=== PATIENT | female | born 1995 | race Caucasian/White ===

== ENCOUNTER 2019-02-09 23:00 | Inpatient (IN) | payer MEDICAID, SELFPAY | END 2019-02-11 12:50 | disposition home or self-care (01) | DRG 786 | PROVIDERS: Admitting Provider Family Medicine; Family Provider Family Medicine; Visit Provider Family Medicine | DX: O71.03 Rupture of uterus before onset of labor, third trimester (principal); O45.93 Premature separation of placenta, unspecified, third trimester; Z3A.34 34 weeks gestation of pregnancy; Z37.0 Single live birth; O34.211 Maternal care for low transverse scar from previous cesarean delivery; N85.8 Other specified noninflammatory disorders of uterus; O76 Abnormality in fetal heart rate and rhythm complicating labor and delivery; O99.02 Anemia complicating childbirth; D64.9 Anemia, unspecified; Z28.21 Immunization not carried out because of patient refusal ==

== ENCOUNTER 2019-06-20 07:48 | Outpatient (CLI) | payer MEDICAID, SELFPAY ==
--- NOTE | 2019-06-20 08:00 | US_ITS ---
WS: [id number] ABDOMINAL ULTRASOUND LIMITED REASON FOR VISIT: abdominal pain TECHNIQUE: Grayscale and Doppler ultrasound examination of the abdomen. FINDINGS: Pancreas: Within normal limits Abdominal aorta and IVC: Within normal limits Liver: Liver measures 15.2 cm in length. Normal hepatopedal circulation. Gallbladder: Gallbladder wall thickness measures 0.2 mm. No stones identified. Right kidney: Right kidney measures 10.9 cm x 6.7 cm x 4.9 cm. No hydronephrosis no stones. US/US gall bladder [id number] IMPRESSION: Normal abdominal survey by ultrasound.
== END 2019-06-20 07:49 | disposition home or self-care (01) ==
LOC: RAD 07:48
PROVIDERS: Family Provider Family Medicine; PCP Family Medicine; Visit Provider Surgery
DX: R10.9 Unspecified abdominal pain (principal)
CPT/HCPCS: 76705

== ENCOUNTER 2019-07-04 07:27 | Outpatient (CLI) | payer MEDICAID, SELFPAY ==
--- NOTE | 2019-07-04 07:37 | NM_ITS ---
WS: [id number] NUCLEAR MEDICINE HIDA SCAN CLINICAL INFORMATION: RUQ PAIN TECHNIQUE: Following intravenous administration of 7.1 mCi of technetium 99m mebrofenin, images of th e abdomen were obtained over the course of 60 minutes. Next, gallbladder ejection fraction was determ ined by obtaining preprandial and one-hour postprandial images of the gallbladder following oral eliseo stion of Ensure. COMPARISON: Ultrasound June 20, 2019 FINDINGS: Normal hepatic uptake at 5 minutes. Gallbladder is visualized by 10 minutes. Normal common bile duct is visualized. Normal small bowel activity. No evidence of acute cholecystitis. Gallbladder ejection fraction 93% within normal limits. No evidence of chronic cholecystitis. NM/NM hepatobiliary w phar* [id number] IMPRESSION: 1. No evidence of acute or chronic cholecystitis. 2. Gallbladder ejection fraction 93% within normal limits.
== END 2019-07-04 07:28 | disposition home or self-care (01) ==
PROVIDERS: PCP Family Medicine; Visit Provider Surgery
DX: R10.11 Right upper quadrant pain (principal)
CPT/HCPCS: 78227; A9537

== ENCOUNTER 2019-07-12 14:41 | Outpatient (CLI) | payer MEDICAID, SELFPAY | END 2019-07-12 14:42 | disposition home or self-care (01) | LOC: LAB 14:43 | PROVIDERS: PCP Family Medicine; Visit Provider Surgery | DX: R19.7 Diarrhea, unspecified (principal) | CPT/HCPCS: 83630; 87177; 87209; 87493; 87506 ==

== ENCOUNTER 2019-08-06 10:56 | Emergency (ER) | payer MEDICAID, SELFPAY ==
[2019-08-06 11:00] VITALS: BP 102/57; PULSE 118; RESP 18; TEMP 38.3; O2SAT 97; BMI 32.6
--- NOTE | 2019-08-06 11:47 | XR_ITS ---
WS: [id number] PORTABLE CHEST HISTORY: Fever COMPARISON: 02/10/2019 Lungs are clear and well expanded. No pleural effusion or pneumothorax. Cardiac size: Normal. Mediastinum/Aorta: Normal mediastinum. No osseous abnormality seen. XR/XR chest 1V portable [id number] IMPRESSION: Unremarkable portable chest.
--- NOTE | 2019-08-06 12:00 | ED_ITS ---
HPI - Fever General: Chief Complaint: Fever Stated Complaint: fever/ body aches Time Seen by Provider: 08/06/19 11:59 Source: patient Mode of arrival: ambulatory Limitations: no limitations History of Present Illness: HPI Narrative: Patient comes in for fever and malaise since Tuesday. Patient symptoms are generalized with some nausea and vomiting. Patient does have a history of gallstones. Patient's appendix has been removed. Patient appears mildly unwell. Patient appears in no pain. Patient does report some suprapubic and low back pain. MD elicited complaint: fever and malaise Associated symptoms: Reports diarrhea and nausea Review of Systems General: Reports: 10 or more systems reviewed and unremarkable except in HPI and below Const: Reports: fever(s) GI: Reports: nausea and diarrhea PFSH ED PFSH: Surgical History History of 2 sections History of appendectomy (~2015) History of tubal ligation (~2019) Family History Denies family history of Anesthesia complication Bleeding disorder Social History Smoking and tobacco status: never smoked Second hand smoke exposure: No Alcohol intake: current Alcohol intake frequency: holidays/special occasions only Desire information about alcohol rehabilitation?: No Adopted: No Caregiver/support person: Yes Lives independently: Yes Household members: significant other Housing: House Marital status: Single service: No Current occupational status: unemployed 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 Current occupational exposures/hazards: No Pets and animals: No History of recent travel: No Sexually active: No Current gender identity: Female Rocío/Episcopal: Taoism Special rocío needs: No Agree to transfusion: No Financial difficulty paying for basics: Decline to Answer Physical Exam Const: COMMON NORMALS: no acute distress and patient oriented x3 GENERAL APPEARANCE: cooperative HENMT: COMMON NORMALS: normocephalic and Normal external nose present HEAD & SCALP: normal to inspection and normocephalic NOSE: Normal external nose present MOUTH: Normal oral and palatal mucosa present THROAT: posterior oropharynx normal Eye: GENERAL EYE: appearance normal, both eyes and all related structures Neck/C-Spine: COMMON NORMALS: full ROM Lymph: LYMPHATIC: no lymphadenopathy noted Chest: COMMONS NORMALS: normal inspection of the chest Resp: COMMON NORMALS: normal respiratory effort EFFORT & INSPECTION: Yes able to speak in complete sentences Cardio: COMMON NORMALS: regular rate and regular rhythm RATE: regular rate RHYTHM: regular rhythm GI: COMMON NORMALS: non-tender : COMMON NORMALS: Yes no CVA tenderness BLADDER/KIDNEY EXAM: Yes no CVA tenderness Back/Pelvis: COMMON NORMALS: no CVA tenderness and thoracic and lumbar spine normal to inspection Extremity: COMMON NORMALS: normal to inspection Neuro: COMMON NORMALS: patient oriented x3 and moves all extremities Psych: COMMON NORMALS: mental status grossly normal and cooperative Skin: COMMON NORMALS: no rashes or lesions noted GENERAL SKIN EXAM: no rashes or lesions noted Course Vital Signs: Vital signs: Vital Signs Temperature 100.9 F H 08/06/19 11:00 Pulse Rate 109 H 08/06/19 13:14 Respiratory Rate 15 08/06/19 13:14 Blood Pressure 128/88 08/06/19 13:14 Pulse Oximetry 99 08/06/19 13:14 MDM - Fever MDM Narrative: Medical decision making narrative: Patient came in today for complaints of febrile illness since last Tuesday. On exam abdomen soft nontender. Bowel sounds are present. No CVA tenderness is noted. Respirations are even lungs are clear to auscultation. Vital signs are normal except for elevation in temperature. Differential diagnosis includes but not limited to pneumonia, urinary tract infection, gastroenteritis, cholecystitis, pyelonephritis. Chest x-ray was normal. Laboratory values noted a slight elevation in white blood cell count. Urinalysis showed leukocyte esterase. Remainder the exam was normal. Suspect urinary tract infection. Will treat with Rocephin 1 g IV piggyback x1 and then continue with cephalexin twice daily for 7 days. Patient will monitor for worsening symptoms and return if needed. Recommend follow-up with primary care in 1 week for recheck. Lab Data: Labs: Lab Results 08/06/19 08/06/19 08/06/19 Range/Units 12:56 12:56 12:56 WBC 13.9 H (4.0-10.0) 10^3/ uL RBC 4.51 (4.1-5.3) 10^6/u L Hgb 12.0 (11.5-15.3) g/dL Hct 38.4 (37.0-47.0) % MCV 85.1 (81-99) fL MCH 26.6 L (28.0-34.0) pg MCHC 31.3 (30.0-36.0) g/dL RDW 13.1 (12.1-15.1) % Plt Count 229 (130-400) 10^3/c mm MPV 8.7 (7.4-10.4) fL Neut % (Auto) 87.2 % Lymph % (Auto) 8.4 % Maury % (Auto) 3.9 % Eos % (Auto) 0.1 % Baso % (Auto) 0.1 % Neut # (Auto) 12.1 H (1.8-7.7) 10^3/u L Lymph # (Auto) 1.2 (0.8-4.8) 10^3/u L Maury # (Auto) 0.5 (0.2-0.9) 10^3/u L Eos # (Auto) 0.0 (0.0-0.8) 10^3/u L Baso # (Auto) 0.0 (0.0-0.1) 10^3/u L Nucleated RBC % (a uto) 0 % Nucleated RBCs # 0.0 /100WBC Sodium 137 (136-145) mmol/L Potassium 3.7 (3.5-5.1) mmol/L Chloride 100 (98-107) mmol/L Carbon Dioxide 22 (22-29) mmol/L Anion Gap 18.7 (5-19) BUN 8 (6-20) mg/dL Creatinine 0.6 (0.5-0.9) mg/dL GFR Calculation 125.0 (90-130) mL/min Glucose 95 (65-115) mg/dL Calculated Osmolal ity 280 L (285-295) mOsm/k g Lactic Acid (0.5-2.2) mmol/L Calcium 9.0 (8.5-10.5) mg/dL Magnesium 1.7 (1.7-2.3) mg/dL Total Bilirubin 0.5 (0.15-1.2) mg/dL AST 14 (0-32) U/L ALT 15 (0-33) U/L Alkaline Phosphata se 66 (35-105) IU/L Total Protein 7.4 (6.6-8.7) g/dL Albumin 4.2 (3.5-5.2) g/dL Globulin 3.2 (1.3-4.6) g/dL Lipase 17 (13-60) U/L HCG, Qual Negative (Negative) Urine Color (Yellow) Urine Appearance (CLEAR) Urine pH (5-7) Ur Specific Gravit y (1.005-1.030) Urine Protein (Negative) Urine Glucose (UA) (Normal) Urine Ketones (Negative) Urine Blood (Negative) Urine Nitrate (Negative) Urine Bilirubin (NEGATIVE) Urine Urobilinogen (Negative) mg/dL Ur Leukocyte Mariana ase (Negative) Urine RBC (0-2) /hpf Urine WBC (0-5) /hpf Ur Squamous Epith Cells (0-5) Urine Bacteria (NONE) Urine Mucus 08/06/19 08/06/19 Range/Units 12:56 13:09 WBC (4.0-10.0) 10^3/ uL RBC (4.1-5.3) 10^6/u L Hgb (11.5-15.3) g/dL Hct (37.0-47.0) % MCV (81-99) fL MCH (28.0-34.0) pg MCHC (30.0-36.0) g/dL RDW (12.1-15.1) % Plt Count (130-400) 10^3/c mm MPV (7.4-10.4) fL Neut % (Auto) % Lymph % (Auto) % Maury % (Auto) % Eos % (Auto) % Baso % (Auto) % Neut # (Auto) (1.8-7.7) 10^3/u L Lymph # (Auto) (0.8-4.8) 10^3/u L Maury # (Auto) (0.2-0.9) 10^3/u L Eos # (Auto) (0.0-0.8) 10^3/u L Baso # (Auto) (0.0-0.1) 10^3/u L Nucleated RBC % (a uto) % Nucleated RBCs # /100WBC Sodium (136-145) mmol/L Potassium (3.5-5.1) mmol/L Chloride (98-107) mmol/L Carbon Dioxide (22-29) mmol/L Anion Gap (5-19) BUN (6-20) mg/dL Creatinine (0.5-0.9) mg/dL GFR Calculation (90-130) mL/min Glucose (65-115) mg/dL Calculated Osmolal ity (285-295) mOsm/k g Lactic Acid 0.9 (0.5-2.2) mmol/L Calcium (8.5-10.5) mg/dL Magnesium (1.7-2.3) mg/dL Total Bilirubin (0.15-1.2) mg/dL AST (0-32) U/L ALT (0-33) U/L Alkaline Phosphata se (35-105) IU/L Total Protein (6.6-8.7) g/dL Albumin (3.5-5.2) g/dL Globulin (1.3-4.6) g/dL Lipase (13-60) U/L HCG, Qual (Negative) Urine Color Yellow (Yellow) Urine Appearance Clear (CLEAR) Urine pH 5 (5-7) Ur Specific Gravit y 1.015 (1.005-1.030) Urine Protein Neg (Negative) Urine Glucose (UA) Norm (Normal) Urine Ketones Negative (Negative) Urine Blood Neg (Negative) Urine Nitrate Negative (Negative) Urine Bilirubin Neg (NEGATIVE) Urine Urobilinogen Neg (Negative) mg/dL Ur Leukocyte Mariana ase Trace H (Negative) Urine RBC None (0-2) /hpf Urine WBC 0-4 H (0-5) /hpf Ur Squamous Epith Cells 10-15 H (0-5) Urine Bacteria Trace (NONE) Urine Mucus 3+ Discharge Plan Discharge Patient Disposition: Home, Self-Care Clinical Impression: UTI (urinary tract infection) Qualifiers: Urinary tract infection type: site unspecified Hematuria presence: without hematuria Qualified Code(s): N39.0 - Urinary tract infection, site not specified Condition: Stable Prescriptions: New cephalexin 500 mg capsule 500 mg PO BID 7 Days Qty: 14 RF: 0 Discontinued ciprofloxacin HCl [Cipro] 500 mg tablet 500 mg PO BID 7 Days Qty: 14 RF: 0 metronidazole [Flagyl] 500 mg tablet 500 mg PO TID 7 Days Qty: 21 RF: 0 No Action clindamycin phosphate 1 % gel 1 applic TOPICAL DAILY Qty: 30 RF: 0 Discharge Orders: Discharge Order (Routine); Ordered 08/06/19 Ordered By: Timothy Pritchett Referrals: Malcom Smith MD [Primary Care Provider] - Discharge Diet: Usual diet Discharge Activity: Increase activity as tolerated Activity Restrictions/Additional Instructions: Home and rest. Drink plenty of fluids. Take antibiotics as directed. Follow- up with primary care in 1 week. Return to the emergency department for worsening symptoms or new concerns. 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
[2019-08-06 12:12] VITALS: BP 127/73; PULSE 112; RESP 16; O2SAT 99
[2019-08-06 13:04] LABS: Basophils % 0.1 %; Eosinophils % 0.1 %; Hematocrit 38.4 % (37.0-47.0); Lymphocytes # 1.2 10^3/uL (0.8-4.8); Lymphocytes % 8.4 %; Mean Corpuscular HGB Conc 31.3 g/dL (30.0-36.0); Mean Corpuscular Hemoglobin 26.6 pg (28.0-34.0); Mean Corpuscular Volume 85.1 fL (81-99); Mean Platelet Volume 8.7 fL (7.4-10.4); Monocytes # 0.5 10^3/uL (0.2-0.9); Monocytes % 3.9 %; Neutrophils # 12.1 10^3/uL (1.8-7.7); Neutrophils % 87.2 %; Nucleated Red Blood Cells % 0 %; Platelet Count 229 10^3/cmm (130-400); Red Blood Count 4.51 10^6/uL (4.1-5.3); Red Cell Distribution Width 13.1 % (12.1-15.1); White Blood Count 13.9 10^3/uL (4.0-10.0)
[2019-08-06] MEDS: lactated ringers 1,000 ML 999 ML IV (13:09)
[2019-08-06 13:14] VITALS: BP 128/88; PULSE 109; RESP 15; O2SAT 99
[2019-08-06 13:19] LABS: HCG, Serum Qual Negative (Negative)
[2019-08-06 13:28] LABS: Lactic Sepsis W/Reflex 0.9 mmol/L (0.5-2.2)
[2019-08-06 13:29] LABS: Alanine Aminotransferase 15 U/L (0-33); Albumin Level 4.2 g/dL (3.5-5.2); Alkaline Phosphatase 66 IU/L (35-105); Anion Gap 18.7 (5-19); Aspartate Amino Transferase 14 U/L (0-32); Blood Urea Nitrogen 8 mg/dL (6-20); Carbon Dioxide 22 mmol/L (22-29); Chloride 100 mmol/L (98-107); Globulin 3.2 g/dL (1.3-4.6); Glucose 95 mg/dL (65-115); Lipase 17 U/L (13-60); Magnesium 1.7 mg/dL (1.7-2.3); Osmolality Calculated 280 mOsm/kg (285-295); Potassium 3.7 mmol/L (3.5-5.1); Sodium 137 mmol/L (136-145); Total Bilirubin 0.5 mg/dL (0.15-1.2); Total Protein 7.4 g/dL (6.6-8.7)
[2019-08-06 13:39] LABS: Bacteria Urine TRACE; Bilirubin Urine Neg (NEGATIVE); Blood Urine Neg (Negative); Glucose Urine UA Norm (Normal); Ketones Urine Negative (Negative); Leukocyte Esterase Urine Trace (Negative); Mucus Urine 3+; Nitrate Urine Negative (Negative); Protein Urine Neg (Negative); Specific Gravity, Urine 1.015 (1.005-1.030); Urine Appearance Clear (CLEAR); Urine Color Yellow (Yellow); Urobilinogen Urine Neg (Negative); WBC Urine 0-4 /hpf (0-5); pH Urine 5 (5-7)
[2019-08-06 13:40] LABS: Add Urine Culture? No
[2019-08-06] MEDS: cefTRIAXone 1,000 MG in sodium chloride 0.9% (plus) 50 ML 100 MG IV (14:03)
[2019-08-06 14:58] VITALS: BP 122/97; PULSE 111; RESP 16; O2SAT 95
== END 2019-08-06 14:58 | disposition home or self-care (01) ==
PROVIDERS: Emergency Medicine; Emergency Provider Nurse Practitioner Family; PCP Family Medicine
DX: N39.0 Urinary tract infection, site not specified (principal)
CPT/HCPCS: 12345; 36415; 71045; 80053; 81001; 83605; 83690; 83735; 84703; 85025; 96365; 96367; 99283; J0696

== ENCOUNTER → 2019-11-13 10:59 | Outpatient (BNVA) | payer MEDICAID, SELFPAY | PROVIDERS: PCP Family Medicine; Referring Provider Dermatology; Visit Provider Dermatology | DX: L40.8 Other psoriasis (principal); L73.2 Hidradenitis suppurativa; B07.0 Plantar wart; L85.9 Epidermal thickening, unspecified; D22.9 Melanocytic nevi, unspecified; L70.0 Acne vulgaris | CPT/HCPCS: 99203; 99204 ==

== ENCOUNTER → 2020-05-23 10:15 | Outpatient (BNVA) | payer BC, MEDICAID, SELFPAY | PROVIDERS: PCP Family Medicine; Visit Provider Dermatology | DX: L70.0 Acne vulgaris (principal); Z11.52 Encounter for screening for COVID-19 | CPT/HCPCS: 80048; 87635 ==

== ENCOUNTER 2020-05-29 09:29 | Day surgery (SDC) | payer BC, MEDICAID, SELFPAY ==
[2020-05-28 14:26] VITALS: BMI 34.9
[2020-05-29] VITALS (7 sets, daily range): BP systolic 104–151; BP diastolic 68–83; PULSE 65–90; RESP 16–20; TEMP 36.3–36.6; O2SAT 97–100
--- NOTE | 2020-05-29 09:52 | P.ANESASSM_ITS ---
Pre-Anesthetic Assessment Pre-Anesthetic Assessment: Height/Weight: Height 1.73 m Weight 104.326 kg Temp Pulse Resp BP Pulse Ox 97.8 F 90 18 130/68 97 05/29/20 09:49 05/29/20 09:49 05/29/20 09:49 05/29/20 09:49 05/29/20 09:49 Proposed Procedure: Operation Date: 05/29/20 10:55 Proposed Procedures p abdominal wound exploration(Not Applicable) - Marcel Govea MD Was Beta Franki taken within 24 hours: N/A Was Clonidine taken within 24 hours: N/A Social: Social History: No alcohol and No tobacco Exam: Pre-Anes Outpt Exam: alert, oriented x 3, clear to auscultation bilaterally and regular rate & rhythm Airway: Submandibular: WNL Cervical ROM: WNL MP: 2 Dentition: Full Metabolic: Metabolic: Morbid obesity Neuropsych: Neuropsych: Anxiety and Depression Anesthetic Plan: ASA status: 3 Anesthesia: General Risk of > 500 ml blood loss (7ml/kg in children): No PFSH Anesthesia PFSH: Medical History (Updated 05/05/20 @ 11:32 by Marcel Govea MD) RUPA (generalized anxiety disorder) Major depressive disorder Surgical History History of 2 sections History of appendectomy (~2015) History of tubal ligation (~2019) Family History Denies family history of Anesthesia complication Bleeding disorder Social History Smoking and tobacco status: never smoked Second hand smoke exposure: No Alcohol intake: current Alcohol intake frequency: holidays/special occasions only Desire information about alcohol rehabilitation?: No Adopted: No Caregiver/support person: Yes Lives independently: Yes Household members: significant other Housing: House Marital status: Single service: No Current occupational status: unemployed 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
--- NOTE | 2020-05-29 10:07 | W.PM.OPSUD ---
Surgery/Procedure H&P Update DATE OF PROCEDURE: May 29, 2020 DATE H&P PERFORMED: 05/05/20 H&P UPDATE INFORMATION: I have reviewed H&P completed within last 30 days, I have examined patient prior to procedure and No changes to prior documentation PREOP DIAGNOSIS: chronic draining sinus abdominal wall PLANNED PROCEDURE: Operation Date: 05/29/20 10:55 Proposed Procedures p abdominal wound exploration(Not Applicable) - Marcel Govea MD
[2020-05-29 10:19] LABS: OR HCG Qualitative Urine Negative (Negative)
[2020-05-29] MEDS: sodium chloride 0.9% 1,000 ML 30 ML IV (10:25)
--- NOTE | 2020-05-29 12:34 | PM.OP ---
Operative Report Date of procedure: May 29, 2020 Pre-op Diagnosis: chronic draining sinus abdominal wall Post-op Diagnosis: Chronic draining sinus with abscess on the abdominal wall Procedure Done: Excision of abdominal wall abscess/sinus Pathology: Abdominal wall tissue Surgeon: Marcel Govea Anesthesia: General Condition: stable Disposition: PACU Procedure: The patient was taken to the operating room and placed under MAC and the abdomen was prepped and draped in sterile manner after IV antibiotic had been administered. 1% lidocaine with 0.5% Marcaine was infiltrated around the surgical site. Using 15 blade an elliptical 4 x 2 cm incision was made, subcutaneous tissue was divided using electrocautery and dissection was carried down to the muscular fascia. The specimen was sent to pathology, wound irrigated with saline, hemostasis ensured and subcutaneous tissues were approximated using interrupted 3-0 Vicryl suture and skin was closed using vertical mattress 3-0 Prolene suture. Antibiotic cream and sterile dressings were used to cover the incision. The patient was transferred recovery room in stable condition.
--- NOTE | 2020-05-29 13:39 | ANE.PACU2 ---
Inpatient post-anesthesia follow up: Airway intact: Yes Vital signs: Temperature 98 F Pulse Rate 76 Respiratory Rate 18 Blood Pressure 104/80 Pulse Oximetry 97 Oxygen Delivery Me thod Room Air Oxygen Flow Rate Fraction of Inspir ed Oxygen Hydration adequate: Yes Nausea and vomiting: No Pain level: 2 Mental status: Baseline
== END 2020-05-29 12:43 | disposition home or self-care (01) ==
PROVIDERS: Anesthesiology; PCP Family Medicine; Visit Provider Surgery
PROC: (CPT 11404; principal; 2020-05-29 10:45)
DX: L02.211 Cutaneous abscess of abdominal wall (principal); E66.01 Morbid (severe) obesity due to excess calories; Z68.35 Body mass index [BMI] 35.0-35.9, adult
CPT/HCPCS: 11404; 12032; 81025; 84703; 88307; 96365; J0690; J2704; J3010; J7030

== ENCOUNTER → 2020-10-20 12:08 | Outpatient (BNVA) | payer BC, MEDICAID, SELFPAY | PROVIDERS: PCP Family Medicine; Visit Provider Registered Nurse Neonatal Intensive Care | DX: J02.9 Acute pharyngitis, unspecified (principal) | CPT/HCPCS: 87880 ==

== ENCOUNTER 2021-03-11 13:40 | Outpatient (CLI) | payer BC, MEDICAID, SELFPAY ==
[2021-03-11 14:23] LABS: Basophils % 0.4 %; Eosinophils # 0.6 10^3/uL (0.0-0.8); Eosinophils % 5.3 %; Hematocrit 40.8 % (37.0-47.0); Hemoglobin 13.2 g/dL (11.5-15.3); Lymphocytes # 2.5 10^3/uL (0.8-4.8); Lymphocytes % 24.5 %; Mean Corpuscular HGB Conc 32.4 g/dL (30.0-36.0); Mean Corpuscular Hemoglobin 26.3 pg (28.0-34.0); Mean Corpuscular Volume 81.3 fl (81-99); Mean Platelet Volume 8.7 fL (7.4-10.4); Monocytes # 0.5 10^3/uL (0.2-0.9); Monocytes % 4.7 %; Neutrophils # 6.67 10^3/uL (1.8-7.7); Neutrophils % 64.7 %; Nucleated Red Blood Cells % 0 %; Platelet Count 291 10^3/cmm (130-400); Red Blood Count 5.02 10^6/uL (4.1-5.3); Red Cell Distribution Width 13.5 % (12.1-15.1); White Blood Count 10.3 10^3/uL (4.0-10.0)
[2021-03-11 14:43] LABS: Alanine Aminotransferase 26 U/L (0-33); Albumin Level 4.6 g/dL (3.5-5.2); Alkaline Phosphatase 66 IU/L (35-105); Aspartate Amino Transferase 17 U/L (0-32); Blood Urea Nitrogen 8 mg/dL (6-20); Calcium 9.8 mg/dL (8.5-10.5); Carbon Dioxide 21 mmol/L (22-29); Chloride 103 mmol/L (98-107); Globulin 3.1 g/dL (1.3-4.6); Glomerular Filtration Rate 102.8 mL/min (90-130); Glucose 82 mg/dL (65-115); Osmolality Calculated 283 mOsm/kg (285-295); Sodium 138 mmol/L (136-145); Total Bilirubin 0.3 mg/dL (0.15-1.2); Total Protein 7.7 g/dL (6.6-8.7)
[2021-03-11 15:18] LABS: HIV 1 & 2 Antibody Non-Reactive (Non-Reactiv); HIV 1 & 2 Antigen Non-Reactive (Non-Reactiv)
[2021-03-11 15:46] LABS: Hepatitis A Antibody IgM Non-Reactive (Nonreactive); Hepatitis B Core AB, Total Non-Reactive (Nonreactive); Hepatitis B Surface AB 5.1 (11.5-1000); Hepatitis C Virus Antibody Non-Reactive (Nonreactive)
[2021-03-11 19:42] LABS: Hepatitis B Surface Antigen Non-Reactive (Nonreactive)
[2021-03-13 13:18] LABS: Quantiferon Mitogen >10.00 IU/mL; Quantiferon Nil 0.01 IU/mL; Quantiferon Plus TB1 0.01 IU/mL; Quantiferon Plus TB2 0.01 IU/mL; Quantiferon TB Gold NEGATIVE (NEGATIVE)
== END 2021-03-11 13:41 | disposition home or self-care (01) ==
LOC: LAB 13:58
PROVIDERS: PCP Family Medicine; Visit Provider Dermatology
DX: Z79.899 Other long term (current) drug therapy (principal)
CPT/HCPCS: 80053; 85025; 86480; 86705; 86706; 86709; 86803; 87340; 87806

== ENCOUNTER 2022-04-10 20:43 | Emergency (ER) | payer BC, MEDICAID, SELFPAY ==
[2022-04-10 20:48] VITALS: BP 131/85; PULSE 93; RESP 20; TEMP 36.8; O2SAT 97; BMI 25.8
--- NOTE | 2022-04-10 20:57 | ECG_ITS ---
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 Measurements Intervals [place] Rate: 94 P: 76 RI: 128 QRS: 57 QRSD: 90 T: 42 QT: 336 QTc: 421 Interpretive Statements SINUS RHYTHM POSSIBLE LEFT ATRIAL ENLARGEMENT [-0.1mV P-WAVE IN V1/V2] POSSIBLE RIGHT VENTRICULAR CONDUCTION DELAY [RSR (QR) IN V1/V2] Compared to ECG 10/28/2016 20:53:23 No significant changes Electronically Signed On 04-11-2022 15:17:14 TOBACCO SPRAYER by Homero Latham M.D. [email or web address]
--- NOTE | 2022-04-10 21:04 | XRR_ITS ---
PROCEDURE INFORMATION: Exam: XR Chest Exam date and time: 04/10/2022 9:25 PM Age: 26 years old Clinical indication: Pain; Chest pressure; Additional info: Cp TECHNIQUE: Imaging protocol: Radiologic exam of the chest. Views: 1 view. COMPARISON: CR XR chest 1V portable [id number] 08/06/2019 12:43 PM FINDINGS: Lungs: Unremarkable. No consolidation. Pleural spaces: Unremarkable. No pleural effusion. No pneumothorax. Heart/Mediastinum: Unremarkable. No cardiomegaly. Bones/joints: Unremarkable. XR/XR chest 1V portable [id number] IMPRESSION: No acute findings.
[2022-04-10 22:30] LABS: Basophils # 0.1 10^3/uL (0.0-0.1); Basophils % 0.3 %; Eosinophils # 0.4 10^3/uL (0.0-0.8); Eosinophils % 2.3 %; Hematocrit 43.5 % (37.0-47.0); Hemoglobin 14.1 g/dL (11.5-15.3); Lymphocytes # 4.8 10^3/uL (0.8-4.8); Lymphocytes % 30.5 %; Mean Corpuscular HGB Conc 32.4 g/dL (30.0-36.0); Mean Corpuscular Hemoglobin 28.5 pg (28.0-34.0); Mean Corpuscular Volume 87.9 fl (81-99); Mean Platelet Volume 8.7 fL (7.4-10.4); Monocytes # 0.8 10^3/uL (0.2-0.9); Monocytes % 5.2 %; Neutrophils # 9.62 10^3/uL (1.8-7.7); Neutrophils % 61.4 %; Nucleated Red Blood Cells % 0 %; Platelet Count 338 10^3/cmm (130-400); Red Blood Count 4.95 10^6/uL (4.1-5.3); Red Cell Distribution Width 13.8 % (12.1-15.1); White Blood Count 15.7 10^3/uL (4.0-10.0)
[2022-04-10 22:55] LABS: Alanine Aminotransferase 13 U/L (0-33); Alkaline Phosphatase 59 U/L (35-105); Anion Gap 14.9 (5-19); Aspartate Amino Transferase 16 U/L (0-32); Blood Urea Nitrogen 10 mg/dL (6-20); Calcium 11.5 mg/dL (8.5-10.5); Carbon Dioxide 27 mmol/L (22-29); Chloride 101 mmol/L (98-107); Globulin 3.1 g/dL (1.3-4.6); Glucose 92 mg/dL (65-115); Lipase 18 U/L (13-60); Osmolality Calculated 287 mOsm/kg (285-295); Potassium 3.9 mmol/L (3.5-5.1); Sodium 139 mmol/L (136-145); Total Bilirubin 0.4 mg/dL (0.15-1.2); Total Protein 8.1 g/dL (6.6-8.7)
--- NOTE | 2022-04-10 23:28 | W.ED.CHESTPA ---
Documented by User: SANFORD Hernandez 04/11/22 02:59 HPI - Chest Pain General: Chief Complaint: Chest Pain Stated Complaint: Chest Pain Time Seen by Provider: 04/10/22 23:27 History of Present Illness: Patient is a 26-year-old female comes to the ED with chest pain. Symptoms started around 1400 today while at rest. Pain is located in the substernal region and radiates up into her neck. she describes it as a burning type pain that feels like it goes up her throat. She has taken some Tums today and that did not help.. Pain is not constant comes in brief episodes that last about a minute. She can aggravate the pain or cause a flareup of the pain if she turns her head from side to side. Taking a deep breath causes worsening pain as well. Since here in the ED she has had about 10 episodes of this pain. Denies any throat swelling or any trouble breathing. Laying flat does not worsen symptoms. Denies any history of cardiac issues, acid reflux, panic attacks, anxiety. She has a past medical history of at bedtime and is currently taking Humira. Associated symptoms: Deny abdominal pain, dyspnea, fever(s), nausea, palpitations or vomiting Review of Systems Const: Denies: fever(s), chills or fatigue Eyes: Denies: change in vision or eye discomfort ENMT: Denies: throat pain, odynophagia, nasal discharge or nasal congestion Card: Reports: chest pain; Denies: palpitations, edema, swelling of feet/ankles, dyspnea on exertion or orthopnea Resp: Reports: pain on inspiration; Denies: dyspnea, productive cough or non-productive cough GI: Denies: abdominal pain, nausea, vomiting, diarrhea, constipation or hematochezia : Denies: flank pain, dysuria or hematuria Musc: Denies: neck pain, back pain or extremity swelling Skin/Breast: Denies: rash or new lesions Neuro: Denies: headache(s), numbness in extremities or weakness in extremities [facility] ED PFSH: Medical History RUPA (generalized anxiety disorder) Major depressive disorder Surgical History History of 2 sections History of appendectomy (~2015) History of tubal ligation (~2019) Family History Denies family history of Anesthesia complication Bleeding disorder Social History Smoking and tobacco status: never smoked Second hand smoke exposure: No Alcohol intake: current Alcohol intake frequency: holidays/special occasions only Desire information about alcohol rehabilitation?: No Adopted: No Caregiver/support person: Yes Lives independently: Yes Household members: significant other Housing: House Marital status: Single service: No Current occupational status: unemployed 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 Current occupational exposures/hazards: No Pets and animals: No Sexually active: No Current gender identity: Female Rocío/Judaism: Mormonism Special rocío needs: No Agree to transfusion: No Financial difficulty paying for basics: Decline to Answer Physical Exam Const: COMMON NORMALS: no acute distress, patient oriented x3, healthy appearing and alert GENERAL APPEARANCE: cooperative and comfortable HENMT: COMMON NORMALS: normocephalic HEAD & SCALP: normocephalic MOUTH: Normal oral and palatal mucosa present THROAT: posterior oropharynx normal and uvula midline Neck/C-Spine: COMMON NORMALS: supple GENERAL: Yes normal visual inspection CERVICAL SPINE: No Paracervical muscle tenderness and No Trapezius muscle tenderness Chest: CHEST: No tenderness Resp: COMMON NORMALS: normal respiratory effort, No retractions, No use of accessory muscles and clear to auscultation bilaterally AUSCULTATION: clear to auscultation bilaterally Cardio: COMMON NORMALS: regular rate, regular rhythm, S1 normal heart sound present, S2 normal heart sound present, No gallops present (Cardio), No clicks present (Cardio), No murmurs present (Cardio) and Peripheral pulses 2+ throughout RATE: regular rate RHYTHM: regular rhythm HEART SOUNDS: S1 normal heart sound present and S2 normal heart sound present PERIPHERAL PULSES: Peripheral pulses 2+ throughout GI: COMMON NORMALS: Normal to inspection, nondistended, normoactive bowel sounds present, Soft to palpation, non-tender and no masses PALPATION: Yes Soft to palpation : COMMON NORMALS: Yes no CVA tenderness BLADDER/KIDNEY EXAM: Yes no CVA tenderness Back/Pelvis: COMMON NORMALS: no CVA tenderness Neuro: COMMON NORMALS: patient oriented x3 SENSORIUM/ORIENTATION: Yes alert GAIT: Yes Normal gait present Skin: GENERAL SKIN EXAM: dry skin Course Vital Signs: Vital signs: Vital Signs Temperature 98.3 F 04/11/22 01:02 Pulse Rate 69 04/11/22 01:02 Respiratory Rate 20 H 04/11/22 01:02 Blood Pressure 141/71 04/11/22 01:02 Pulse Oximetry 97 04/11/22 01:02 MDM - Chest Pain Medical Decision Making Patient is a 26-year-old female comes to the ED with chest pain. Symptoms started around 1400 today while at rest. Pain is located in the substernal region and radiates up into her neck. she describes it as a burning type pain that feels like it goes up her throat. She has taken some Tums today and that did not help.. Pain is not constant comes in brief episodes that last about a minute. She can aggravate the pain or cause a flareup of the pain if she turns her head from side to side. Taking a deep breath causes worsening pain as well. Vitals are stable. Patient appears nontoxic in no acute distress. No chest wall tenderness noted. Lungs are clear to auscultation bilaterally. Rest of exam is benign. White blood cell count 15.7 with the rest of CBC and CMP were unremarkable. Chest x-ray shows no acute findings. EKG shows normal sinus rhythm, [address] segment elevation or depression seen. Patient was given a dose of GI cocktail and a muscle relaxer and symptoms did not improve. IM Toradol given here in the ED as well. I reviewed patient case with Dr. Craig and he agreed that patient could potentially have pleurisy but does not appear to be having any acute issue that requires hospitalization. She was diagnosed with atypical chest pain and was discharged home. Told to follow-up with PCP within the next couple days for reevaluation. Return to ED precautions given. Patient understood and agreed with plan. Lab Data I reviewed the patient's lab results. 04/10/22 22:24 04/10/22 22:24 Radiology Impressions Chest X-Ray 04/10/22 21:04 IMPRESSION: No acute findings. Laboratory Results WBC 15.7 10^3/uL (4.0-10.0) H 04/10/22 22:24 RBC 4.95 10^6/uL (4.1-5.3) 04/10/22 22:24 Hgb 14.1 g/dL (11.5-15.3) 04/10/22: Hct 43.5 % (37.0-47.0) 04/10/22: MCV 87.9 fl (81-99) 04/10/22: MCH 28.5 pg (28.0-34.0) 04/10/22: MCHC 32.4 g/dL (30.0-36.0) 04/10/22: RDW 13.8 % (12.1-15.1) 04/10/22: Plt Count 338 10^3/cmm (130-400) 04/10/22: MPV 8.7 fL (7.4-10.4) 04/10/22: Neut % (Auto) 61.4 % 04/10/22: Lymph % (Auto) 30.5 % 04/10/22: Barron % (Auto) 5.2 % 04/10/22: Eos % (Auto) 2.3 % 04/10/22: Baso % (Auto) 0.3 % 04/10/22: Neut # (Auto) 9.62 10^3/uL (1.8-7.7) H 04/10/22: Lymph # (Auto) 4.8 10^3/uL (0.8-4.8) 04/10/22: Barron # (Auto) 0.8 10^3/uL (0.2-0.9) 04/10/22: Eos # (Auto) 0.4 10^3/uL (0.0-0.8) 04/10/22: Baso # (Auto) 0.1 10^3/uL (0.0-0.1) 04/10/22: Nucleated RBC % (auto) 0 % 04/10/22: Nucleated RBCs # 0.0 /100WBC 04/10/22 22: Sodium 139 mmol/L (136-145) 04/10/22: Potassium 3.9 mmol/L (3.5-5.1) 04/10/22: Chloride 101 mmol/L (98-107) 04/10/22 22:24 Carbon Dioxide 27 mmol/L (22-29) 04/10/22 22:24 Anion Gap 14.9 (5-19) 04/10/22 22:24 BUN 10 mg/dL (6-20) 04/10/22 22:24 Creatinine 0.7 mg/dL (0.5-0.9) 04/10/22 22:24 GFR Calculation 102.0 mL/min (90-130) 04/10/22 22:24 Glucose 92 mg/dL (65-115) 04/10/22 22:24 Calculated Osmolality 287 mOsm/kg (285-295) 04/10/22 22:24 Calcium 11.5 mg/dL (8.5-10.5) H 04/10/22 22:24 Total Bilirubin 0.4 mg/dL (0.15-1.2) 04/10/22 22:24 AST 16 U/L (0-32) 04/10/22 22:24 ALT 13 U/L (0-33) 04/10/22 22:24 Alkaline Phosphatase 59 U/L (35-105) 04/10/22 22:24 Total Protein 8.1 g/dL (6.6-8.7) 04/10/22 22:24 Albumin 5.0 g/dL (3.5-5.2) 04/10/22 22:24 Globulin 3.1 g/dL (1.3-4.6) 04/10/22 22:24 Lipase 18 U/L (13-60) 04/10/22 22:24 EKG Data EKG 1: EKG interpretation date: 04/10/22 Interpretation: Normal sinus rhythm, 94 bpm, no ST segment elevation or depression seen. Discharge Plan Discharge Patient Disposition: Home Clinical Impression: Atypical chest pain Condition: Stable Prescriptions: No Action fluticasone propion-salmeterol [Advair Diskus] 500-50 mcg/dose blister with device 1 inh inhalation BID Qty: 60 5RF albuterol sulfate [Ventolin HFA] 90 mcg/actuation HFA aerosol inhaler 2 puff inhalation Q6H PRN (Reason: shortness of breath or wheezing) Qty: 8.5 5RF albuterol sulfate 2.5 mg /3 mL (0.083 %) solution for nebulization 2.5 mg inhalation Q4H PRN (Reason: shortness of breath or wheezing) Qty: 180 2RF clindamycin-benzoyl peroxide 1.2 %(1 % base) -5 % gel 1 applic topical DAILY Qty: 45 6RF Rx Instructions: Apply thin film to face, chest, and back every morning. May bleach clothes. adapalene [Differin] 0.3 % gel with pump 1 applic topical DAILY Qty: 45 4RF Rx Instructions: Apply pea-sized amount to clean, dry face nightly (Differin with pump) clindamycin phosphate 1 % lotion 1 applic topical DAILY Qty: 60 6RF Rx Instructions: Apply thin film to affected area 1-2 times daily tretinoin [Retin-A] 0.05 % cream 1 applic topical .qhs Qty: 45 3RF Rx Instructions: Apply pea sized amount to clean dry face nightly (RETIN-A) spironolactone 50 mg tablet 50 mg PO DAILY Qty: 30 2RF Rx Instructions: Take one tablet daily Humira(CF) Pen 40 mg/0.4 mL pen injector kit See Rx Instructions SUBCUT .COMPLEX Qty: 2 4RF Rx Instructions: Maintenance: inject one - 40 mg/0.4 mL pen SUB-Q every week after loading dose is complete. Discharge Orders: Discharge ED (Routine); Ordered 04/11/22 Ordered By: Dallas Nieto Referrals: Avis Dawson DO [Primary Care Provider] - Discharge Diet: Regular Discharge Activity: Increase activity as tolerated Patient Instructions: Pleurisy (DC), Noncardiac Chest Pain (ED) Activity Restrictions/Additional Instructions: Follow-up with medical provider as directed in the next 2 to 3 days for reevaluation. Discussed with your doctor about taking ibuprofen temporarily to help with chest pain or you can take [id number] Tylenol.. Return to the ER or your medical provider if condition worsens. Please read and understand discharge instructions. Thank you for choosing [facility] for your healthcare needs today. Please realize this is an emergency room and that we are providing you with a medical screening exam and this may not be complete and all inclusive of all the testing and or work up that you may need to determine your ailment or severity of your illness. It is very important that you follow up as instructed or that you return to the Emergency Department should you have concerns or if your condition changes or worsens in any way. Coding Level of Care Code ED Diabetes Nurse for Chg Fwd Documented by User: Davian Craig, 04/11/22 19:23 HPI - Chest Pain General: Chief Complaint: Chest Pain Stated Complaint: Chest Pain Time Seen by Provider: 04/10/22 23:27 [facility] ED PFSH: Medical History RUPA (generalized anxiety disorder) Major depressive disorder Surgical History History of 2 sections History of appendectomy (~2015) History of tubal ligation (~2019) Family History Denies family history of Anesthesia complication Bleeding disorder Social History Smoking and tobacco status: never smoked Second hand smoke exposure: No Alcohol intake: current Alcohol intake frequency: holidays/special occasions only Desire information about alcohol rehabilitation?: No Adopted: No Caregiver/support person: Yes Lives independently: Yes Household members: significant other Housing: House Marital status: Single service: No Current occupational status: unemployed 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 Symptoms started around 1400 today while at rest. Pain is located in the substernal region and radiates up into her neck. she describes it as a burning type pain that feels like it goes up her throat. She has taken some Tums today and that did not help.. Pain is not constant comes in brief episodes that last about a minute. She can aggravate the pain or cause a flareup of the pain if she turns her head from side to side. Taking a deep breath causes worsening pain as well. Vitals are stable. Patient appears nontoxic in no acute distress. No chest wall tenderness noted. Lungs are clear to auscultation bilaterally. Rest of exam is benign. White blood cell count 15.7 with the rest of CBC and CMP were unremarkable. Chest x-ray shows no acute findings. EKG shows normal sinus rhythm, [address] segment elevation or depression seen. Patient was given a dose of GI cocktail and a muscle relaxer and symptoms did not improve. IM Toradol given here in the ED as well. I reviewed patient case with Dr. Craig and he agreed that patient could potentially have pleurisy but does not appear to be having any acute issue that requires hospitalization. She was diagnosed with atypical chest pain and was discharged home. Told to follow-up with PCP within the next couple days for reevaluation. Return to ED precautions given. Patient understood and agreed with plan. This patient was originally seen by Mr. Emilia PA-C.? I agree with his history, evaluation, and treatment. Lab Data 04/10/22 22:24 04/10/22 22:24 Radiology Impressions Chest X-Ray 04/10/22 21:04 IMPRESSION: No acute findings. Laboratory Results WBC 15.7 10^3/uL (4.0-10.0) H 04/10/22 22:24 RBC 4.95 10^6/uL (4.1-5.3) 04/10/22 22:24 Hgb 14.1 g/dL (11.5-15.3) 04/10/22 22:24 Hct 43.5 % (37.0-47.0) 04/10/22 22:24 MCV 87.9 fl (81-99) 04/10/22 22:24 MCH 28.5 pg (28.0-34.0) 04/10/22 22:24 MCHC 32.4 g/dL (30.0-36.0) 04/10/22 22: RDW 13.8 % (12.1-15.1) 04/10/22 22: Plt Count 338 10^3/cmm (130-400) 04/10/22 22:24 MPV 8.7 fL (7.4-10.4) 04/10/22 22: Neut % (Auto) 61.4 % 04/10/22 22:24 Lymph % (Auto) 30.5 % 04/10/22 22:24 Barron % (Auto) 5.2 % 04/10/22 22:24 Eos % (Auto) 2.3 % 04/10/22 22: Baso % (Auto) 0.3 % 04/10/22: Neut # (Auto) 9.62 10^3/uL (1.8-7.7) H 04/10/22 22: Lymph # (Auto) 4.8 10^3/uL (0.8-4.8) 04/10/22: Barron # (Auto) 0.8 10^3/uL (0.2-0.9) 04/10/22 22:24 Eos # (Auto) 0.4 10^3/uL (0.0-0.8) 04/10/22 22: Baso # (Auto) 0.1 10^3/uL (0.0-0.1) 04/10/22 22: Nucleated RBC % (auto) 0 % 04/10/22: Nucleated RBCs # 0.0 /100WBC 04/10/22 22:24 Sodium 139 mmol/L (136-145) 04/10/22 22:24 Potassium 3.9 mmol/L (3.5-5.1) 04/10/22 22:24 Chloride 101 mmol/L (98-107) 04/10/22 22: Carbon Dioxide 27 mmol/L (22-29) 04/10/22 22:24 Anion Gap 14.9 (5-19) 04/10/22 22:24 BUN 10 mg/dL (6-20) 04/10/22 22:24 Creatinine 0.7 mg/dL (0.5-0.9) 02/25/23 22:24 GFR Calculation 102.0 mL/min (90-130) 04/10/22 22:24 Glucose 92 mg/dL (65-115) 04/10/22 22:24 Calculated Osmolality 287 mOsm/kg (285-295) 04/10/22 22:24 Calcium 11.5 mg/dL (8.5-10.5) H 04/10/22 22:24 Total Bilirubin 0.4 mg/dL (0.15-1.2) 04/10/22 22:24 AST 16 U/L (0-32) 04/10/22 22:24 ALT 13 U/L (0-33) 04/10/22 22:24 Alkaline Phosphatase 59 U/L (35-105) 04/10/22 22:24 Total Protein 8.1 g/dL (6.6-8.7) 04/10/22 22:24 Albumin 5.0 g/dL (3.5-5.2) 04/10/22 22:24 Globulin 3.1 g/dL (1.3-4.6) 04/10/22 22: Lipase 18 U/L (13-60) 04/10/22 22:24 Discharge Plan Discharge Patient Disposition: Home Clinical Impression: Atypical chest pain Condition: Stable Prescriptions: No Action fluticasone propion-salmeterol [Advair Diskus] 500-50 mcg/dose blister with device 1 inh inhalation BID Qty: 60 5RF albuterol sulfate [Ventolin HFA] 90 mcg/actuation HFA aerosol inhaler 2 puff inhalation Q6H PRN (Reason: shortness of breath or wheezing) Qty: 8.5 5RF albuterol sulfate 2.5 mg /3 mL (0.083 %) solution for nebulization 2.5 mg inhalation Q4H PRN (Reason: shortness of breath or wheezing) Qty: 180 2RF clindamycin-benzoyl peroxide 1.2 %(1 % base) -5 % gel 1 applic topical DAILY Qty: 45 6RF Rx Instructions: Apply thin film to face, chest, and back every morning. May bleach clothes. adapalene [Differin] 0.3 % gel with pump 1 applic topical DAILY Qty: 45 4RF Rx Instructions: Apply pea-sized amount to clean, dry face nightly (Differin with pump) clindamycin phosphate 1 % lotion 1 applic topical DAILY Qty: 60 6RF Rx Instructions: Apply thin film to affected area 1-2 times daily tretinoin [Retin-A] 0.05 % cream 1 applic topical .qhs Qty: 45 3RF Rx Instructions: Apply pea sized amount to clean dry face nightly (RETIN-A) spironolactone 50 mg tablet 50 mg PO DAILY Qty: 30 2RF Rx Instructions: Take one tablet daily Humira(CF) Pen 40 mg/0.4 mL pen injector kit See Rx Instructions SUBCUT .COMPLEX Qty: 2 4RF Rx Instructions: Maintenance: inject one - 40 mg/0.4 mL pen SUB-Q every week after loading dose is complete. Discharge Orders: Discharge ED (Routine); Ordered 04/11/22 Ordered By: Dallas Nieto Referrals: Avis Dawson DO [Primary Care Provider] - Discharge Diet: Regular Discharge Activity: Increase activity as tolerated Patient Instructions: Pleurisy (DC), Noncardiac Chest Pain (ED) Activity Restrictions/Additional Instructions: Follow-up with medical provider as directed in the next 2 to 3 days for reevaluation. Discussed with your doctor about taking ibuprofen temporarily to help with chest pain or you can take [id number] Tylenol.. Return to the ER or your medical provider if condition worsens. Please read and understand discharge instructions. Thank you for choosing [facility] for your healthcare needs today. Please realize this is an emergency room and that we are providing you with a medical screening exam and this may not be complete and all inclusive of all the testing and or work up that you may need to determine your ailment or severity of your illness. It is very important that you follow up as instructed or that you return to the Emergency Department should you have concerns or if your condition changes or worsens in any way. Coding Level of Care Code ED Diabetes Nurse for Constanza Evans
--- NOTE | 2022-04-10 23:33 | PC.NURSE ---
Pt brought back to ER 6 and hooked up to monitors by triage nurse.
[2022-04-10] MEDS: orphenadrine 30 mg/mL Inj 2 mL 60 MG IM (23:59)
[2022-04-10] MEDS: lidocaine 2% viscous 15 ML, aluminum-mag hydrox-simethicon 30 ML, sucralfate oral liq 1 GM PO (23:59)
[2022-04-11 01:02] VITALS: BP 141/71; PULSE 69; RESP 20; TEMP 36.8; O2SAT 97
[2022-04-11] MEDS: ketorolac 60 mg/2 mL INJ IM (01:07)
== END 2022-04-11 01:36 | disposition home or self-care (01) ==
PROVIDERS: Emergency Medicine; Emergency Provider Physician Assistant; PCP Family Medicine
DX: R07.89 Other chest pain (principal)
CPT/HCPCS: 36415; 71045; 80053; 83690; 85025; 93005; 96372; 99285; J1885; J2360

== ENCOUNTER 2022-10-08 12:50 | Outpatient (CLI) | payer BC, MEDICAID, SELFPAY ==
[2022-10-11 14:40] LABS: Quantiferon Mitogen 8.36 IU/mL; Quantiferon Nil 0.02 IU/mL; Quantiferon Plus TB1 0.01 IU/mL; Quantiferon Plus TB2 0.01 IU/mL; Quantiferon TB Gold NEGATIVE (NEGATIVE)
== END 2022-10-08 12:51 | disposition home or self-care (01) ==
LOC: LAB 12:53
PROVIDERS: PCP Family Medicine; Visit Provider Nurse Practitioner Family
DX: L73.2 Hidradenitis suppurativa (principal); L70.0 Acne vulgaris; D22.5 Melanocytic nevi of trunk; L81.4 Other melanin hyperpigmentation
CPT/HCPCS: 36415; 86480

== ENCOUNTER 2023-01-05 08:58 | Emergency (ER) | payer BC, MEDICAID, SELFPAY ==
[2023-01-05 09:11] VITALS: BP 106/57; PULSE 68; RESP 18; O2SAT 100; BMI 21.2
--- NOTE | 2023-01-05 09:13 | ED_ITS ---
HPI - Abdominal Pain General: Chief Complaint: Abdominal Pain Stated Complaint: abd pain, NV Time Seen by Provider: 01/05/23 09:06 Source: patient Mode of arrival: ambulatory Limitations: no limitations History of Present Illness: 27-year-old female states that over the last week she has been having nausea vomiting along with upper abdominal pain. She states that burning pain in her abdomen also on her right upper quadrant states the pain is currently a 3 out of 10 she denies any diarrhea has been having normal bowel movements. She had an appendectomy along with tubal ligation. She denies any fevers denies any worsening improving factors. Associated Symptoms: Reports nausea and vomiting; Denies chills, diarrhea, dysuria and fever(s) Review of Systems Const: Denies: fever(s), chills, body aches or change in appetite Eyes: Denies: blurry vision or eye discomfort ENMT: Denies: throat pain or dental pain Card: Denies: chest pain Resp: Denies: dyspnea GI: Reports: abdominal pain, nausea and vomiting; Denies: diarrhea : Denies: dysuria Musc: Denies: neck pain or back pain Skin/Breast: Denies: rash Neuro: Denies: headache(s) PFSH ED PFSH: Medical History RUPA (generalized anxiety disorder) Hidradenitis suppurativa Major depressive disorder Surgical History History of 2 sections History of appendectomy (~2015) History of tubal ligation (~2019) Family History Denies family history of Anesthesia complication Bleeding disorder Social History Smoking and tobacco/nicotine status: never used tobacco/nicotine Second hand smoke exposure: No Alcohol intake: current Alcohol intake frequency: holidays/special occasions only Substance/Drug Use: current Substance/Drug use frequency: daily Adopted: No Caregiver/support person: Yes Lives independently: Yes Household members: significant other Housing: House Marital status: Single service: No Current occupational status: unemployed 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 Current occupational exposures/hazards: No Pets and animals: No Sexually active: No Do you think of yourself as: Straight/Heterosexual Current gender identity: Female Rocío/Islam: Presybeterian Special rocío needs: No Agree to transfusion: No Physical Exam Const: COMMON NORMALS: no acute distress, patient oriented x3 and healthy appearing HENMT: COMMON NORMALS: normocephalic and atraumatic HEAD & SCALP: normocephalic and atraumatic Eye: COMMON NORMALS: Equal, round and reactive pupils present and EOMs intact bilaterally PUPIL: Yes Equal, round and reactive pupils present Neck/C-Spine: COMMON NORMALS: full ROM and supple Chest: COMMONS NORMALS: normal inspection of the chest and normal palpation of entire chest wall Resp: COMMON NORMALS: normal respiratory effort, No retractions, No use of accessory muscles and clear to auscultation bilaterally AUSCULTATION: clear to auscultation bilaterally Cardio: COMMON NORMALS: regular rate, regular rhythm and No murmurs present (Cardio) RATE: regular rate RHYTHM: regular rhythm GI: COMMON NORMALS: Normal to inspection, nondistended, normoactive bowel sounds present, Soft to palpation, non-tender and no masses PALPATION: Yes Soft to palpation Extremity: COMMON NORMALS: normal to inspection and full ROM Neuro: COMMON NORMALS: patient oriented x3, moves all extremities and no focal motor deficits Psych: COMMON NORMALS: mental status grossly normal, Normal thought process present and cooperative THOUGHT PROCESS: Normal thought process present Skin: COMMON NORMALS: no rashes or lesions noted and no wounds GENERAL SKIN EXAM: no rashes or lesions noted Course Vital Signs: Vital signs: Vital Signs Pulse Rate 68 01/05/23 09:11 Respiratory Rate 18 01/05/23 09:11 Blood Pressure 106/57 01/05/23 09:11 Pulse Oximetry 100 01/05/23 09:11 Oxygen Delivery Me thod Room Air 01/05/23 09:11 MDM - Abdominal Pain Medical Decision Making Patient presents here with upper abdominal pain with some vomiting will start Protonix and Zofran blood work ultrasound of her gallbladder here is normal she has no signs of acute surgical abdomen or small bowel obstruction we will get her follow-up with surgery she is return if worsening she understands agrees to plan Medical Records I reviewed the patient's medical records. Lab Data I reviewed the patient's lab results. 01/05/23 09:18 01/05/23 09:18 Labs/Radiology: Laboratory Results WBC 10.81 10^3/uL (3.29-11.43) 01/05/23 09:18 RBC 5.29 10^6/uL (3.85-5.65) 01/05/23 09:18 Hgb 14.70 g/dL (11.27-16.99) 01/05/23 09:18 Hct 44.7 % (36-47) 01/05/23 09:18 MCV 84.5 fl (85-98) L 01/05/23 09:18 MCH 27.8 pg (27-33) 01/05/23 09:18 MCHC 32.9 g/dL (30-55) 01/05/23 09:18 RDW 12.6 % (12.1-15.1) 01/05/23 09:18 Plt Count 393 10^3/cmm (157-399) 01/05/23 09:18 MPV 8.3 fL (7.4-10.4) 01/05/23 09:18 Neut % (Auto) 48.5 % 01/05/23 09:18 Lymph % (Auto) 44.0 % 01/05/23 09:18 [place] % (Auto) 5.1 % 01/05/23 09:18 Eos % (Auto) 1.2 % 01/05/23 09:18 Baso % (Auto) 0.5 % 01/05/23 09:18 Neut # (Auto) 5.24 10^3/uL (1.8-7.7) 01/05/23 09:18 Lymph # (Auto) 4.8 10^3/uL (0.8-4.8) 01/05/23 09:18 [place] # (Auto) 0.6 10^3/uL (0.2-0.9) 01/05/23 09:18 Eos # (Auto) 0.1 10^3/uL (0.0-0.8) 01/05/23 09:18 Baso # (Auto) 0.1 10^3/uL (0.0-0.1) 01/05/23 09:18 Nucleated RBC % (auto) 0 % 01/05/23 09:18 Nucleated RBCs # 0.0 /100WBC 01/05/23 09:18 Sodium 139 mmol/L (136-145) 01/05/23 09:18 Potassium 3.9 mmol/L (3.5-5.1) 01/05/23 09:18 Chloride 103 mmol/L (98-107) 01/05/23 09:18 Carbon Dioxide 24 mmol/L (22-29) 01/05/23 09:18 Anion Gap 15.9 (5-19) 01/05/23 09:18 BUN 10 mg/dL (6-20) 01/05/23 09:18 Creatinine 0.8 mg/dL (0.5-0.9) 01/05/23 09:18 GFR Calculation 86.7 mL/min (90-130) L 01/05/23 09:18 Glucose 93 mg/dL (65-115) 01/05/23 09:18 Calculated Osmolality 287 mOsm/kg (285-295) 01/05/23 09:18 Calcium 9.8 mg/dL (8.5-10.5) 01/05/23 09:18 Total Bilirubin 0.7 mg/dL (0.15-1.2) 01/05/23 09:18 AST 13 U/L (0-32) 01/05/23 09:18 ALT 14 U/L (0-33) 01/05/23 09:18 Alkaline Phosphatase 63 U/L (35-105) 01/05/23 09:18 Total Protein 8.0 g/dL (6.6-8.7) 01/05/23 09:18 Albumin 4.8 g/dL (3.5-5.2) 01/05/23 09:18 Globulin 3.2 g/dL (1.3-4.6) 01/05/23 09:18 Lipase 19 U/L (13-60) 01/05/23 09:18 All radiology interpretation(s) finalized by discharge Discharge Plan Discharge Patient Disposition: Home Clinical Impression: Abdominal pain, Vomiting Condition: Stable Prescriptions: New pantoprazole [Protonix] 40 mg tablet,delayed release (DR/EC) 40 mg PO DAILY Qty: 60 0RF ondansetron 4 mg tablet,disintegrating 4 mg PO Q6H PRN (Reason: nausea and vomiting) Qty: 14 0RF No Action albuterol sulfate 2.5 mg /3 mL (0.083 %) solution for nebulization 2.5 mg inhalation Q4H PRN (Reason: shortness of breath or wheezing) Qty: 180 2RF clindamycin-benzoyl peroxide 1.2 %(1 % base) -5 % gel 1 applic topical DAILY Qty: 45 6RF Rx Instructions: Apply thin film to face, chest, and back every morning. May bleach clothes. clindamycin phosphate 1 % lotion 1 applic topical DAILY Qty: 60 6RF Rx Instructions: Apply thin film to affected area 1-2 times daily tretinoin [Retin-A] 0.05 % cream 1 applic topical .qhs Qty: 45 3RF Rx Instructions: Apply pea sized amount to clean dry face nightly (RETIN-A) albuterol sulfate [Ventolin HFA] 90 mcg/actuation HFA aerosol inhaler 2 puff inhalation Q4H PRN (Reason: shortness of breath or wheezing) Qty: 8.5 5RF Humira(CF) Pen 40 mg/0.4 mL pen injector kit See Rx Instructions SUBCUT .COMPLEX Qty: 2 4RF Rx Instructions: Maintenance: inject one - 40 mg/0.4 mL pen SUB-Q every week after loading dose is complete. ON TUESDAY Discharge Orders: Discharge ED (Routine); Ordered 01/05/23 Ordered By: Romain Johns Referrals: Zachery Morrison DO [Physician] - 1-3 days Avis Dawson DO [Primary Care Provider] - Discharge Diet: Advance as tolerated Discharge Activity: Resume usual activity Patient Instructions: Acute Nausea and Vomiting (ED), Abdominal Pain (ED) Coding Level of Care Code ED Cardiology Teacher for Constanza Evans
--- NOTE | 2023-01-05 09:14 | US_ITS ---
WS: [id number] RIGHT UPPER QUADRANT ULTRASOUND HISTORY: ruq pain COMPARISON: 06/20/2019 Liver: 12.5 cm in length. Normal size liver and echogenicity. No bile duct dilatation or mass. Portal Vein: Normal hepatopetal flow with monophasic waveform. Gallbladder: There is very mild gallbladder wall prominence but still less than 3 mm. No pericholecys tic fluid. No cholelithiasis. The mild gallbladder wall prominence may be due to slight contraction a nd nonfasting state. CBD: 0.3 cm Pancreas: Normal size and echogenicity. Right kidney: 11.1 cm in length. Normal size and echogenicity. No hydronephrosis or mass. Aorta and IVC: Unremarkable abdominal aorta and IVC. No ascites. IMPRESSION: 1. No cholelithiasis or bile duct dilatation. 2. Very mild prominence of the gallbladder wall less than 3 mm. May be due to slight gallbladder cont raction. At this time no evidence for acute cholecystitis or bile duct obstruction.
[2023-01-05 09:25] LABS: Basophils # 0.1 10^3/uL (0.0-0.1); Basophils % 0.5 %; Eosinophils # 0.1 10^3/uL (0.0-0.8); Eosinophils % 1.2 %; Hematocrit 44.7 % (36-47); Lymphocytes # 4.8 10^3/uL (0.8-4.8); Mean Corpuscular HGB Conc 32.9 g/dL (30-55); Mean Corpuscular Hemoglobin 27.8 pg (27-33); Mean Corpuscular Volume 84.5 fl (85-98); Mean Platelet Volume 8.3 fL (7.4-10.4); Monocytes # 0.6 10^3/uL (0.2-0.9); Monocytes % 5.1 %; Neutrophils # 5.24 10^3/uL (1.8-7.7); Neutrophils % 48.5 %; Nucleated Red Blood Cells % 0 %; Platelet Count 393 10^3/cmm (157-399); Red Blood Count 5.29 10^6/uL (3.85-5.65); Red Cell Distribution Width 12.6 % (12.1-15.1); White Blood Count 10.81 10^3/uL (3.29-11.43)
[2023-01-05] MEDS: sodium chloride 0.9% 1,000 ML 999 ML IV (09:28)
[2023-01-05] MEDS: ondansetron 2 mg/ML SDV 2 mL 4 MG IVP (09:28)
[2023-01-05 09:52] LABS: Alanine Aminotransferase 14 U/L (0-33); Albumin Level 4.8 g/dL (3.5-5.2); Alkaline Phosphatase 63 U/L (35-105); Anion Gap 15.9 (5-19); Aspartate Amino Transferase 13 U/L (0-32); Blood Urea Nitrogen 10 mg/dL (6-20); Calcium 9.8 mg/dL (8.5-10.5); Carbon Dioxide 24 mmol/L (22-29); Chloride 103 mmol/L (98-107); Globulin 3.2 g/dL (1.3-4.6); Glomerular Filtration Rate 86.7 mL/min (90-130); Glucose 93 mg/dL (65-115); Lipase 19 U/L (13-60); Osmolality Calculated 287 mOsm/kg (285-295); Potassium 3.9 mmol/L (3.5-5.1); Sodium 139 mmol/L (136-145); Total Bilirubin 0.7 mg/dL (0.15-1.2)
== END 2023-01-05 10:23 | disposition home or self-care (01) ==
PROVIDERS: Emergency Provider Emergency Medicine; PCP Family Medicine
DX: R10.11 Right upper quadrant pain (principal); R11.11 Vomiting without nausea
CPT/HCPCS: 76705; 80053; 83690; 85025; 96374; 99284; J2405; J7030

== ENCOUNTER 2023-01-12 09:32 | Day surgery (SDC) | payer BC, MEDICAID, SELFPAY ==
--- NOTE | 2023-01-12 10:08 | P.HPUD_ITS ---
Surgery/Procedure H&P Update DATE OF PROCEDURE: January 12, 2023 DATE H&P PERFORMED: 01/11/23 H&P UPDATE INFORMATION: I have reviewed H&P completed within last 30 days, I have examined patient prior to procedure and No changes to prior documentation PLANNED PROCEDURE: Operation Date: 01/12/23 10:30 Proposed Procedures p [id number] egd [id number] colon G0121 screen colon a risk R10.9, K21.9, K52.9(Not Appli cable) - DO rich Younger Colonoscopy(Not Applicable) - Zachery Morrison DO
[2023-01-12 10:12] VITALS: BP 113/82; PULSE 82; RESP 16; TEMP 36.3; O2SAT 99; BMI 24.9
[2023-01-12] MEDS: sodium chloride 0.9% 1,000 ML 30 ML IV (10:16)
[2023-01-12 10:23] LABS: OR HCG Qualitative Urine Negative (Negative)
--- NOTE | 2023-01-12 10:23 | ANES.PREANE2 ---
Pre-Anesthetic Assessment Height/Weight: Height 1.73 m Weight 74.389 kg Temp Pulse Resp BP Pulse Ox O2 Del Method 97.4 F L 82 16 113/82 99 Room Air 01/12/23 10:12 01/12/23 10:12 01/12/23 10:12 01/12/23 10:12 01/12/23 10:12 01/12/23 10:12 Preop Diagnosis: Abdominal pain/ GERD Operation Date: 01/12/23 10:30 Proposed Procedures p [id number] egd [id number] colon G0121 screen colon a risk R10.9, K21.9, K52.9(Not Applicable) - DO rich Younger Colonoscopy(Not Applicable) - Zachery Morrison DO Familial anesthetic complications: None Was Beta Franki taken within 24 hours: N/A Was Clonidine taken within 24 hours: N/A Last intake: Intake Last Liquid Date 01/11/23 Last Liquid Time 22:00 Last Solid Date 01/10/23 Last Solid Time 19:00 Social No alcohol and No tobacco (Smokes marijuana daily) Exam alert, oriented x 3, clear to auscultation bilaterally and regular rate & rhythm Airway Submandibular: within normal limits Cervical ROM: within normal limits Mallampati: Class II Dentition: full Comments: Comments: One broken History/ROS No significant history except as noted and No significant complaints Pulmonary Asthma Bronchitis 2 weeks ago CV/HEM None reported None reported Hepatic None reported GI Gastroesophageal Reflux Disease Metabolic None reported Musc/skel None reported Neuropsych None reported Anesthetic Plan ASA status: 2 Anesthesia: Anesthesia Evaluation, General and MAC Risk of > 500 ml blood loss (7ml/kg in children): No Medications/Allergies Home Medications Medication Instructions Recorded Confirmed Last Taken Type albuterol sulfate 2.5 mg/3 mL 2.5 mg (3 mL) inhalation Q4H PRN 10/26/21 01/12/23 01/10/23 Rx (0.083 %) solution for nebulization shortness of breath or wheezing #180 mL clindamycin 1.2 % (1 % 1 applic topical DAILY #45 grams 12/02/21 01/11/23 01/11/23 Rx base)-benzoyl peroxide 5 % topical gel tretinoin 0.05 % topical cream 1 applic topical .qhs #45 grams 02/25/22 01/11/23 01/10/23 Rx (Retin-A) adalimumab 40 mg/0.4 mL See Rx Instructions SUBCUT 04/22/22 01/11/23 01/09/23 Rx subcutaneous pen kit (Humira(CF) .COMPLEX #2 ea Pen) albuterol sulfate 90 mcg/actuation 2 puff inhalation Q4H PRN 12/29/22 01/12/23 01/03/23 Rx aerosol inhaler (Ventolin HFA) shortness of breath or wheezing #8.5 grams ondansetron 4 mg disintegrating 4 mg PO Q6H PRN nausea and 01/05/23 01/11/23 01/10/23 Rx tablet vomiting #14 tabs pantoprazole 40 mg tablet,delayed 40 mg PO DAILY #60 tabs 01/05/23 01/12/23 01/10/23 Rx release (Protonix) clindamycin phosphate 1 % lotion 1 applic topical DAILY PRN Rash 01/11/23 01/12/23 01/11/23 History Allergies Allergy/AdvReac Type Severity Reaction Status Date / Time azithromycin [From Zithromax] Allergy Severe ALGY-Hives Verified 01/11/23 08:46 morphine Allergy Severe ALGY-Hives Verified 01/11/23 08:46 Current Medications Generic Name Dose Route Start Last Admin Trade Name Freq PRN Reason Stop Dose Admin Sodium Chloride 1,000 mls @ 30 mls/hr 01/12/23 10:00 01/12/23 10:16 Sodium Chloride 0.9% IV 01/13/23 09:59 30 mls/hr .Q24H WENDY Administration PFSH Anesthesia Medical History Hidradenitis suppurativa RUPA (generalized anxiety disorder) Major depressive disorder Surgical History History of 2 sections History of appendectomy (~2015) History of tubal ligation (~2019) Family History Denies family history of Anesthesia complication Bleeding disorder Social History Smoking and tobacco/nicotine status: never used tobacco/nicotine Second hand smoke exposure: No Alcohol intake: current Alcohol intake frequency: holidays/special occasions only Substance/Drug Use: current Substance/Drug use frequency: daily Adopted: No Caregiver/support person: Yes Lives independently: Yes Household members: significant other Housing: House Marital status: Single service: No Current occupational status: unemployed 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
[2023-01-12 11:34] VITALS: BP 95/63; PULSE 71; RESP 16; TEMP 36.1; O2SAT 100
[2023-01-12 11:40] VITALS: BP 82/55; PULSE 66; RESP 18; O2SAT 100
[2023-01-12 11:50] VITALS: BP 110/53; PULSE 76; RESP 18; O2SAT 100
--- NOTE | 2023-01-12 14:09 | ANE.PACU2 ---
Inpatient post-anesthesia follow up: Airway intact: Yes Vital signs: Temperature 97.0 F Pulse Rate 76 Respiratory Rate 18 Blood Pressure 110/53 Pulse Oximetry 100 Oxygen Delivery Me thod Room Air Oxygen Flow Rate Fraction of Inspir ed Oxygen Hydration adequate: Yes Nausea and vomiting: No Pain level: 1 Mental status: Baseline
[2023-01-13 16:44] LABS: Clostridium Difficile PCR NOT DETECTED (NOT DETECTED)
== END 2023-01-12 12:05 | disposition home or self-care (01) ==
PROVIDERS: PCP Family Medicine; Visit Provider Surgery
PROC: 0DJ08ZZ Inspection of Upper Intestinal Tract, Via Natural or Artificial Opening Endoscopic (ICD-10-PCS; CPT 43235; principal; 2023-01-12 10:30)
PROC: 0DJD8ZZ Inspection of Lower Intestinal Tract, Via Natural or Artificial Opening Endoscopic (ICD-10-PCS; CPT 45378; 2023-01-12 10:30)
DX: K52.9 Noninfective gastroenteritis and colitis, unspecified (principal); K21.9 Gastro-esophageal reflux disease without esophagitis; R10.9 Unspecified abdominal pain; F41.1 Generalized anxiety disorder; D12.5 Benign neoplasm of sigmoid colon
CPT/HCPCS: 43239; 45380; 81025; 82274; 83630; 84703; 87045; 87177; 87209; 87427; 87449; 87493; 88305; J2704; J7030

== ENCOUNTER 2023-01-24 08:26 | Day surgery (SDC) | payer BC, MEDICAID, SELFPAY ==
[2023-01-24] VITALS (12 sets, daily range): BP systolic 122–151; BP diastolic 50–75; PULSE 60–86; RESP 15–22; TEMP 36.1–36.6; O2SAT 99–100; BMI 25.0
[2023-01-24 08:39] LABS: OR HCG Qualitative Urine Negative (Negative)
[2023-01-24] MEDS: sodium chloride 0.9% 1,000 ML 30 ML IV (08:49)
--- NOTE | 2023-01-24 08:58 | ANES.PREANE2 ---
Pre-Anesthetic Assessment Height/Weight: Height 1.73 m Weight 74.843 kg Temp Pulse Resp BP Pulse Ox O2 Del Method 97 F L 71 17 123/71 100 Room Air 01/24/23 08:41 01/24/23 08:41 01/24/23 08:41 01/24/23 08:41 01/24/23 08:41 01/24/23 08:41 Operation Date: 01/24/23 09:55 Proposed Procedures p 79506 lap erik K82.8(Not Applicable) - Zachery Morrison DO Familial anesthetic complications: none Was Beta Franki taken within 24 hours: N/A Was Clonidine taken within 24 hours: N/A Last intake: Intake Last Liquid Date 01/23/23 Last Liquid Time 19:00 Last Solid Date 01/23/23 Last Solid Time 19:00 Social No alcohol and No tobacco Exam alert, oriented x 3, clear to auscultation bilaterally and regular rate & rhythm Airway Mallampati: Class I Dentition: chipped (1 broken) Pulmonary Asthma GI Gastroesophageal Reflux Disease Anesthetic Plan ASA status: 2 Anesthesia: General Risk of > 500 ml blood loss (7ml/kg in children): No Medications/Allergies Home Medications Medication Instructions Recorded Confirmed Last Taken Type albuterol sulfate 2.5 mg/3 mL 2.5 mg (3 mL) inhalation Q4H PRN 10/26/21 01/21/23 01/10/23 Rx (0.083 %) solution for nebulization shortness of breath or wheezing #180 mL clindamycin 1.2 % (1 % 1 applic topical DAILY #45 grams 12/02/21 01/24/23 01/23/23 Rx base)-benzoyl peroxide 5 % topical gel tretinoin 0.05 % topical cream 1 applic topical .qhs #45 grams 02/25/22 01/21/23 01/21/23 Rx (Retin-A) adalimumab 40 mg/0.4 mL See Rx Instructions SUBCUT 04/22/22 01/24/23 01/23/23 Rx subcutaneous pen kit (Humira(CF) .COMPLEX #2 ea Pen) albuterol sulfate 90 mcg/actuation 2 puff inhalation Q4H PRN 12/29/22 01/21/23 01/21/23 Rx aerosol inhaler (Ventolin HFA) shortness of breath or wheezing #8.5 grams pantoprazole 40 mg tablet,delayed 40 mg PO DAILY #60 tabs 01/05/23 01/21/23 01/21/23 Rx release (Protonix) clindamycin phosphate 1 % lotion 1 applic topical DAILY PRN Rash 01/11/23 01/21/23 01/18/23 History Allergies Allergy/AdvReac Type Severity Reaction Status Date / Time azithromycin [From Zithromax] Allergy Severe ALGY-Hives Verified 01/19/23 13:28 morphine Allergy Severe ALGY-Hives Verified 01/19/23 13:28 Current Medications Generic Name Dose Route Start Last Admin Trade Name Freq PRN Reason Stop Dose Admin Sodium Chloride 1,000 mls @ 30 mls/hr 01/24/23 08:30 01/24/23 08:49 Sodium Chloride 0.9% IV 01/25/23 08:29 30 mls/hr .Q24H WENDY Administration PFSH Anesthesia Medical History Hidradenitis suppurativa RUPA (generalized anxiety disorder) Major depressive disorder Surgical History History of 2 sections History of appendectomy (~2015) History of tubal ligation (~2019) Family History Denies family history of Anesthesia complication Bleeding disorder Social History Smoking and tobacco/nicotine status: never used tobacco/nicotine Second hand smoke exposure: No Alcohol intake: current Alcohol intake frequency: holidays/special occasions only Substance/Drug Use: current Substance/Drug use frequency: daily Adopted: No Caregiver/support person: Yes Lives independently: Yes Household members: significant other Housing: House Marital status: Single service: No Current occupational status: unemployed 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
--- NOTE | 2023-01-24 10:20 | W.PM.OPSUD ---
Surgery/Procedure H&P Update DATE OF PROCEDURE: January 24, 2023 DATE H&P PERFORMED: 01/19/23 H&P UPDATE INFORMATION: I have reviewed H&P completed within last 30 days, I have examined patient prior to procedure and No changes to prior documentation PLANNED PROCEDURE: Operation Date: 01/24/23 09:55 Proposed Procedures p 55805 lap erik K82.8(Not Applicable) - Zachery Morrison DO
[2023-01-24] MEDS: ceFAZolin 2,000 MG in sodium chloride 0.9% (plus) 50 ML 100 MG IV (12:44)
[2023-01-24] MEDS: lidocaine-epi 2% 20 mL INJ INJECTION (13:19)
--- NOTE | 2023-01-24 13:30 | P.OP_ITS ---
Operative Report Date of procedure: January 24, 2023 Pre-op diagnosis: Biliary dyskinesia Post-op diagnosis: same Procedure done: Laparoscopic cholecystectomy Implants: None Specimens removed/disposition: Gallbladder Surgeon: Zachery Morrison DO Anesthesia: General Estimated blood loss (mL): 5 Complications: None apparent Brief History: Is a very pleasant 27-year-old female who was diagnosed with biliary dyskinesia. Laparoscopic cholecystectomy is indicated. The risk benefits were explained and documented. Procedure: Patient was wheeled into the operative room and placed on the OR table in a supine position. Abdomen was inspected prepped and draped in usual sterile fashion. Time-out was performed and all present were in agreement. A 15 blade scalp was used to make a stab incision in the left upper quadrant and intra- abdominal insufflation was achieved using a Veress needle. After localizing the tissue incisions were made and a 5 millimeter trocar was placed into the umbilicus as well as 2 in the right upper quadrant. A 12 millimeter trocar was placed in the epigastrium. Gallbladder was grasped and elevated. The triangle of Calot was carefully dissected using blunt dissection and electrocautery until the triangle of Calot clearly identified. The cystic duct was clipped proximally and double clipped distally. The duct was then ligated proximally. The cystic artery was doubly clipped and ligated. The gallbladder was then removed from the liver bed using electrocautery. The gallbladder was removed from the abdomen using an Endo-Catch bag through the epigastric incision. The liver bed was inspected and no bleeding was seen. The abdomen was irrigated and suctioned. All ports removed. Skin was washed and dried. Incisions were closed with 4-0 Monocryl in a subcuticular interrupted fashion. Skin glue was applied. Patient tolerated the procedure well.
[2023-01-24] MEDS: HYDROcodone-acetaminophen 5-325 mg Tablet 2 TAB PO (14:39)
--- NOTE | 2023-01-24 15:40 | ANE.PACU2 ---
Inpatient post-anesthesia follow up: Airway intact: Yes Vital signs: Temperature 98 F Pulse Rate 64 Respiratory Rate 16 Blood Pressure 122/50 Pulse Oximetry 100 Oxygen Delivery Me thod Room Air Oxygen Flow Rate 6 Fraction of Inspir ed Oxygen Hydration adequate: Yes Nausea and vomiting: No Pain level: 1 Mental status: Baseline
== END 2023-01-24 15:40 | disposition home or self-care (01) ==
PROVIDERS: Anesthesiology; PCP Family Medicine; Visit Provider Surgery
PROC: 0FT44ZZ Resection of Gallbladder, Percutaneous Endoscopic Approach (ICD-10-PCS; CPT 47562; principal; 2023-01-24 09:45)
DX: K80.10 Calculus of gallbladder with chronic cholecystitis without obstruction (principal); K21.9 Gastro-esophageal reflux disease without esophagitis
CPT/HCPCS: 47562; 81025; 84703; 88304; J0690; J1100; J1885; J2250; J2405; J2704; J2710; J3010; J3490; J7030

== ENCOUNTER 2023-07-02 10:09 | Emergency (ER) | payer BC, MEDICAID, SELFPAY ==
[2023-07-02 10:20] VITALS: BP 107/61; PULSE 69; RESP 17; TEMP 36.7; O2SAT 100; BMI 24.3
--- NOTE | 2023-07-02 13:20 | USR_ITS ---
PROCEDURE INFORMATION: Exam: US Abdomen; Limited Exam date and time: 07/02/2023 2:21 PM Age: 27 years old Clinical indication: Pain; Prior surgery; Surgery date: 6+ months; Surgery type: C section scar. Unsure of surgery dates; Additional info: Eval of abscess to scar TECHNIQUE: Imaging protocol: Real time ultrasound of the abdomen with image documentation. Limited exam focused on the region of clinical interest. COMPARISON: US OB limited [id number] 12/15/2016 12:33 PM FINDINGS: Soft tissues: Examination of a surgical scar in the anterior pelvic wall demonstrates a rounded collection of fluid and debris that measures 2 cm in diameter. No other abnormality is noted. US/US soft tissue/extremity [id number] IMPRESSION: Rounded collection of fluid and debris within a scar. Diagnostic considerations would include hematoma, abscess or granuloma
--- NOTE | 2023-07-02 13:21 | W.ED.ABDPA2 ---
Documented by User: SANFORD West 07/02/23 16:01 HPI - Abdominal Pain General: Chief Complaint: Abdominal Pain Stated Complaint: abcess on stomach Time Seen by Provider: 07/02/23 13:15 Source: patient Mode of arrival: ambulatory Limitations: no limitations History of Present Illness: Patient is a 27-year-old female presenting to the emergency department complaining of abscess over her scar. Patient reports history of hidradenitis suppurativa and states she has had multiple boils/abscesses lanced before. She also has previously had an abscess to the scar in the past. She is reporting pain over the site, though is denying any systemic signs of illness or abdominal pain. No fevers noted. No changes in urination. The abscess itself has not been bleeding or draining, and is very fluctuant on examination. She is reporting some associated nausea, but otherwise no complaints at this time. MD elicited complaint: other (Abscess to scar) Pertinent past history: other (Hidradenitis suppurativa) Onset (ago): day(s) Pain Consistency: constant Associated Symptoms: Reports nausea; Denies chills, constipation, diarrhea, dysuria, fever(s) and vomiting Review of Systems General: Reports: 10 or more systems reviewed and unremarkable except in HPI and below Const: Denies: fever(s), chills or fatigue Eyes: Denies: change in vision ENMT: Denies: throat pain, ear or mastoid pain or nasal discharge Card: Denies: chest pain, palpitations, swelling of feet/ankles or lightheadedness Resp: Denies: dyspnea, productive cough or wheezing GI: Reports: nausea; Denies: abdominal pain, vomiting, diarrhea or constipation : Denies: flank pain, difficulty voiding, dysuria or urinary frequency Musc: Denies: neck pain, back pain or joint pain Skin/Breast: Reports: skin tenderness and new lesions (Abscess or scar); Denies: rash Neuro: Denies: headache(s), numbness in extremities or weakness in extremities PFSH ED PFSH: Medical History Asthma not dependent on systemic steroids with acute exacerbation Hidradenitis suppurativa RUPA (generalized anxiety disorder) Major depressive disorder Surgical History Hx laparoscopic cholecystectomy 01/24/23 Dr Morrison History of 2 sections History of appendectomy (~2015) History of tubal ligation (~2019) Family History Denies family history of Anesthesia complication Bleeding disorder Social History Smoking and tobacco/nicotine status: never used tobacco/nicotine Second hand smoke exposure: No Alcohol intake: current Alcohol intake frequency: holidays/special occasions only Substance/Drug Use: current Substance/Drug use frequency: daily Adopted: No Caregiver/support person: Yes Lives independently: Yes Household members: significant other Housing: House Marital status: Single service: No Current occupational status: unemployed 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 Current occupational exposures/hazards: No Pets and animals: No Sexually active: No Do you think of yourself as: Straight/Heterosexual Current gender identity: Female Rocío/Holiness: Mandaeism Special rocío needs: No Agree to transfusion: No Physical Exam Const: COMMON NORMALS: no acute distress, average body habitus, patient oriented x3, no limitations, healthy appearing and alert GENERAL APPEARANCE: cooperative and comfortable HENMT: COMMON NORMALS: normocephalic and atraumatic HEAD & SCALP: normocephalic and atraumatic Eye: COMMON NORMALS: EOMs intact bilaterally, conjunctivae normal and normal visual payton by confrontation CONJUNCTIVA: Yes conjunctivae normal Neck/C-Spine: COMMON NORMALS: full ROM and no lymphadenopathy Resp: COMMON NORMALS: normal respiratory effort, No use of accessory muscles and clear to auscultation bilaterally AUSCULTATION: clear to auscultation bilaterally Cardio: COMMON NORMALS: regular rate, regular rhythm and No murmurs present (Cardio) RATE: regular rate RHYTHM: regular rhythm GI: COMMON NORMALS: Normal to inspection, nondistended, normoactive bowel sounds present, Soft to palpation and non-tender PALPATION: Yes Soft to palpation Extremity: COMMON NORMALS: normal to inspection and full ROM Neuro: COMMON NORMALS: patient oriented x3, moves all extremities, no focal motor deficits and no sensory deficits noted SENSORIUM/ORIENTATION: Yes alert Psych: COMMON NORMALS: mental status grossly normal Skin: NARRATIVE SKIN EXAM: Palpable area of fluctuance noted to the midline aspect of scar. This area is moderately tender to the touch. No active bleeding or draining. Procedures Abscess I/D Site: abdomen Local Anesthetic: lidocaine 2% and with epi Amount of anesthesia used (mL): 2 Technique: incised with #11 blade Amount of fluid expressed (mL): 15 Packing used?: iodoform Complications: pain Course Vital Signs: Vital signs: Vital Signs Temperature 98.0 F 07/02/23 10:20 Pulse Rate 77 07/02/23 15:45 Respiratory Rate 17 07/02/23 10:20 Blood Pressure 137/58 07/02/23 15:45 Pulse Oximetry 94 07/02/23 15:45 Oxygen Delivery Me thod Room Air 07/02/23 15:45 MDM - Abdominal Pain Medical Decision Making Patient presented with potential abscess over scar. History of similar that required drainage. Ultrasound was nondiagnostic, however abdomen pelvis CT did reveal a approximately 2 cm incisional abscess. I&D performed and large amount of purulent material expressed, see procedure note. Packing was placed and patient started on Bactrim. She also request something for nausea at home. General wound care instructions given, and patient told to return with any signs of infection. All other questions and concerns addressed at this time. Lab Data Labs/Radiology: Radiology Impressions Soft Tissue Ultrasound 07/02/23 13:20 IMPRESSION: Rounded collection of fluid and debris within a scar. Diagnostic considerations would include hematoma, abscess or granuloma Abdomen/Pelvis CT 07/02/23 14:35 IMPRESSION: 2.2 cm incisional abscess with surrounding cellulitis All radiology interpretation(s) finalized by discharge Discharge Plan Discharge Patient Disposition: Home Clinical Impression: Incisional abscess Condition: Stable Prescriptions: New Bactrim 400-80 mg tablet 1 tab PO BID 10 Days Qty: 20 0RF ondansetron HCl 4 mg tablet 4 mg PO Q8H Qty: 30 0RF No Action doxycycline hyclate 100 mg tablet 100 mg PO DAILY albuterol sulfate 2.5 mg /3 mL (0.083 %) solution for nebulization 2.5 mg inhalation Q4H PRN (Reason: shortness of breath or wheezing) Qty: 180 2RF prednisone 20 mg tablet 40 mg PO DAILY 5 Days Qty: 10 0RF albuterol sulfate [Ventolin HFA] 90 mcg/actuation HFA aerosol inhaler 2 puff inhalation Q4H PRN (Reason: shortness of breath or wheezing) Qty: 8.5 5RF clindamycin-benzoyl peroxide 1.2 %(1 % base) -5 % gel 1 applic topical DAILY Qty: 45 6RF Rx Instructions: Apply thin film to face, chest, and back every morning. May bleach clothes. tretinoin [Retin-A] 0.05 % cream 1 applic topical .qhs Qty: 45 3RF Rx Instructions: Apply pea sized amount to clean dry face nightly (RETIN-A) Humira(CF) Pen 40 mg/0.4 mL pen injector kit See Rx Instructions SUBCUT .COMPLEX Qty: 2 4RF Rx Instructions: Maintenance: inject one - 40 mg/0.4 mL pen SUB-Q every week after loading dose is complete. ON TUESDAY hydrocodone-acetaminophen 10-325 mg tablet 1 tab PO Q6H PRN (Reason: pain) Qty: 20 0RF Rx Instructions: May take half of a tab at a time Colace 100 mg capsule 100 mg PO BID Qty: 14 0RF pantoprazole [Protonix] 40 mg tablet,delayed release (DR/EC) 40 mg PO DAILY Qty: 60 0RF clindamycin phosphate 1 % lotion 1 applic topical DAILY PRN (Reason: Rash) Rx Instructions: Apply thin film to affected area 1-2 times daily Discharge Orders: Discharge ED (Routine); Ordered 07/02/23 Ordered By: Tobin Tomlinson Referrals: Avis Dawson DO [Primary Care Provider] - Discharge Diet: Usual diet Discharge Activity: Increase activity as tolerated Patient Instructions: Abscess (ED) Activity Restrictions/Additional Instructions: Packing in for 48 to 72 hours. Take Bactrim as prescribed. Keep wound clean and dry. Follow-up with primary care as needed. Return with any new symptoms or concerning signs of infection. Coding Level of Care Code ED Metropolitan Editor for [facility] Fw[facility] Documented by User: Laith Cardoso DO 07/02/23 17:52 HPI - Abdominal Pain General: Chief Complaint: Abdominal Pain Stated Complaint: abcess on stomach Time Seen by Provider: 07/02/23 13:15 PFSH ED PFSH: Medical History Asthma not dependent on systemic steroids with acute exacerbation Hidradenitis suppurativa RUPA (generalized anxiety disorder) Major depressive disorder Surgical History Hx laparoscopic cholecystectomy 01/24/23 Dr Morrison History of 2 sections History of appendectomy (~2015) History of tubal ligation (~2019) Family History Denies family history of Anesthesia complication Bleeding disorder Social History Smoking and tobacco/nicotine status: never used tobacco/nicotine Second hand smoke exposure: No Alcohol intake: current Alcohol intake frequency: holidays/special occasions only Substance/Drug Use: current Substance/Drug use frequency: daily Adopted: No Caregiver/support person: Yes Lives independently: Yes Household members: significant other Housing: House Marital status: Single service: No Current occupational status: unemployed 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 History of similar that required drainage. Ultrasound was nondiagnostic, however abdomen pelvis CT did reveal a approximately 2 cm incisional abscess. I&D performed and large amount of purulent material expressed, see procedure note. Packing was placed and patient started on Bactrim. She also request something for nausea at home. General wound care instructions given, and patient told to return with any signs of infection. All other questions and concerns addressed at this time. Chart reviewed and patient discussed with midlevel. Agree with assessment and plan. Lab Data Labs/Radiology: Radiology Impressions Soft Tissue Ultrasound 07/02/23 13:20 IMPRESSION: Rounded collection of fluid and debris within a scar. Diagnostic considerations would include hematoma, abscess or granuloma Abdomen/Pelvis CT 07/02/23 14:35 IMPRESSION: 2.2 cm incisional abscess with surrounding cellulitis Discharge Plan Discharge Patient Disposition: Home Clinical Impression: Incisional abscess Condition: Stable Prescriptions: New Bactrim 400-80 mg tablet 1 tab PO BID 10 Days Qty: 20 0RF ondansetron HCl 4 mg tablet 4 mg PO Q8H Qty: 30 0RF No Action doxycycline hyclate 100 mg tablet 100 mg PO DAILY albuterol sulfate 2.5 mg /3 mL (0.083 %) solution for nebulization 2.5 mg inhalation Q4H PRN (Reason: shortness of breath or wheezing) Qty: 180 2RF prednisone 20 mg tablet 40 mg PO DAILY 5 Days Qty: 10 0RF albuterol sulfate [Ventolin HFA] 90 mcg/actuation HFA aerosol inhaler 2 puff inhalation Q4H PRN (Reason: shortness of breath or wheezing) Qty: 8.5 5RF clindamycin-benzoyl peroxide 1.2 %(1 % base) -5 % gel 1 applic topical DAILY Qty: 45 6RF Rx Instructions: Apply thin film to face, chest, and back every morning. May bleach clothes. tretinoin [Retin-A] 0.05 % cream 1 applic topical .qhs Qty: 45 3RF Rx Instructions: Apply pea sized amount to clean dry face nightly (RETIN-A) Humira(CF) Pen 40 mg/0.4 mL pen injector kit See Rx Instructions SUBCUT .COMPLEX Qty: 2 4RF Rx Instructions: Maintenance: inject one - 40 mg/0.4 mL pen SUB-Q every week after loading dose is complete. ON TUESDAY hydrocodone-acetaminophen 10-325 mg tablet 1 tab PO Q6H PRN (Reason: pain) Qty: 20 0RF Rx Instructions: May take half of a tab at a time Colace 100 mg capsule 100 mg PO BID Qty: 14 0RF pantoprazole [Protonix] 40 mg tablet,delayed release (DR/EC) 40 mg PO DAILY Qty: 60 0RF clindamycin phosphate 1 % lotion 1 applic topical DAILY PRN (Reason: Rash) Rx Instructions: Apply thin film to affected area 1-2 times daily Discharge Orders: Discharge ED (Routine); Ordered 07/02/23 Ordered By: Tobin Tomlinson Referrals: Avis Dawson DO [Primary Care Provider] - Discharge Diet: Usual diet Discharge Activity: Increase activity as tolerated Patient Instructions: Abscess (ED) Activity Restrictions/Additional Instructions: Packing in for 48 to 72 hours. Take Bactrim as prescribed. Keep wound clean and dry. Follow-up with primary care as needed. Return with any new symptoms or concerning signs of infection. Coding Level of Care Code ED Metropolitan Editor for Constanza Evans
[2023-07-02] MEDS: ondansetron 2 mg/ML SDV 2 mL 4 MG PO (13:57)
--- NOTE | 2023-07-02 14:35 | CTR_ITS ---
PROCEDURE INFORMATION: Exam: CT Abdomen And Pelvis With Contrast Exam date and time: 07/02/2023 3:06 PM Age: 27 years old Clinical indication: Abdominal pain; Periumbilical; Prior surgery; Surgery date: 6+ months; Surgery type: Appy, tubal, c section x 2 , gb. Most recent surgery 4 years ago; Additional info: abscess/us undiagnostic TECHNIQUE: Imaging protocol: Computed tomography of the abdomen and pelvis with contrast. Radiation optimization: All CT scans at this facility use at least one of these dose optimization techniques: automated exposure control; mA and/or kV adjustment per patient size (includes targeted exams where dose is matched to clinical indication); or iterative reconstruction. Contrast material: OMNI 350; Contrast volume: 100 ml; Contrast route: INTRAVENOUS (IV); COMPARISON: CR XR KUB portable [id number] 02/10/2019 12:31 AM RADIATION DOSE METRICS: Total DLP (mGy-cm): 438.26 FINDINGS: Lungs: Lung bases are clear. No pleural effusion. Liver: Normal. No mass. Gallbladder and bile ducts: The gallbladder has been resected. Pancreas: Normal. No ductal dilation. Spleen: Normal. No splenomegaly. Adrenal glands: Normal. No mass. Kidneys and ureters: Normal. No hydronephrosis. Stomach and bowel: Unremarkable. No obstruction. No mucosal thickening. Appendix: No evidence of appendicitis. Intraperitoneal space: See Soft tissues finding. Vasculature: Unremarkable. No abdominal aortic aneurysm. Lymph nodes: Unremarkable. No enlarged lymph nodes. Urinary bladder: Unremarkable as visualized. Reproductive: Unremarkable as visualized. Bones/joints: Unremarkable. No acute fracture. Soft tissues: There is a 2.2 cm rounded fluid-filled mass involving the anterior pelvic wall with surrounding cellulitis. The mass does not extend into the peritoneal cavity. CT/CT abdomen pelvis w con* [id number] IMPRESSION: 2.2 cm incisional abscess with surrounding cellulitis
[2023-07-02] MEDS: HYDROcodone-acetaminophen 7.5-325 mg Tablet 1 TAB PO (15:06)
[2023-07-02] MEDS: iohexol 350 mg/mL 500 mL Btl (per mL) IV (15:07)
[2023-07-02] MEDS: methylPREDNISolone sod succ 125 mg/2 mL INJ IVP (15:38)
[2023-07-02] MEDS: dexamethasone 10 mg/mL INJ 8 MG IM (15:38)
[2023-07-02 15:45] VITALS: BP 137/58; PULSE 77; O2SAT 94
[2023-07-02] MEDS: lidocaine 2% INJ 20 mL INJECTION (15:58)
== END 2023-07-02 16:27 | disposition home or self-care (01) ==
PROVIDERS: Emergency Provider Physician Assistant; PCP Family Medicine
DX: L02.211 Cutaneous abscess of abdominal wall (principal); L03.311 Cellulitis of abdominal wall
CPT/HCPCS: 10060; 74177; 76882; 96372; 96374; 99285; J1100; J2405; J2919; Q9967

== ENCOUNTER 2023-09-16 16:31 | Outpatient (CLI) | payer BC, MEDICAID, SELFPAY ==
[2023-09-16 16:55] LABS: Basophils % 0.3 %; Eosinophils # 0.4 10^3/uL (0.0-0.8); Eosinophils % 3.5 %; Hematocrit 36.1 % (36-47); Lymphocytes # 3.4 10^3/uL (0.8-4.8); Lymphocytes % 33.7 %; Mean Corpuscular HGB Conc 31.3 g/dL (30-55); Mean Corpuscular Hemoglobin 27.1 pg (27-33); Mean Corpuscular Volume 86.6 fl (85-98); Mean Platelet Volume 8.5 fL (7.4-10.4); Monocytes # 0.5 10^3/uL (0.2-0.9); Monocytes % 4.5 %; Neutrophils # 5.82 10^3/uL (1.8-7.7); Neutrophils % 57.6 %; Nucleated Red Blood Cells % 0 %; Platelet Count 254 10^3/cmm (157-399); Red Blood Count 4.17 10^6/uL (3.85-5.65); Red Cell Distribution Width 14.1 % (12.1-15.1); White Blood Count 10.11 10^3/uL (3.29-11.43)
[2023-09-20 18:49] LABS: Quantiferon Mitogen >10.00 IU/mL; Quantiferon Nil 0.01 IU/mL; Quantiferon Plus TB1 0.01 IU/mL; Quantiferon Plus TB2 0.01 IU/mL; Quantiferon TB Gold NEGATIVE (NEGATIVE)
== END 2023-09-16 16:32 | disposition home or self-care (01) ==
LOC: LAB 16:33
PROVIDERS: PCP Family Medicine; Visit Provider Nurse Practitioner Family
DX: L73.2 Hidradenitis suppurativa (principal)
CPT/HCPCS: 36415; 85025; 86480

== ENCOUNTER 2024-01-16 14:13 | Outpatient (CLI) | payer BC, MEDICAID, SELFPAY ==
[2024-01-16 14:54] LABS: Basophils % 0.3 %; Eosinophils # 0.3 10^3/uL (0.0-0.8); Eosinophils % 2.4 %; Hematocrit 37.3 % (36-47); Lymphocytes # 3.2 10^3/uL (0.8-4.8); Lymphocytes % 30.8 %; Mean Corpuscular HGB Conc 31.1 g/dL (30-55); Mean Corpuscular Hemoglobin 26.9 pg (27-33); Mean Corpuscular Volume 86.5 fl (85-98); Mean Platelet Volume 8.7 fL (7.4-10.4); Monocytes # 0.5 10^3/uL (0.2-0.9); Monocytes % 4.5 %; Neutrophils # 6.31 10^3/uL (1.8-7.7); Neutrophils % 61.7 %; Nucleated Red Blood Cells % 0 %; Platelet Count 294 10^3/cmm (157-399); Red Blood Count 4.31 10^6/uL (3.85-5.65); Red Cell Distribution Width 14.5 % (12.1-15.1); White Blood Count 10.23 10^3/uL (3.29-11.43)
[2024-01-16 15:17] LABS: Alanine Aminotransferase 14 U/L (0-33); Albumin Level 4.4 g/dL (3.5-5.2); Alkaline Phosphatase 52 U/L (35-105); Aspartate Amino Transferase 18 U/L (0-32); Blood Urea Nitrogen 12 mg/dL (6-20); Calcium 8.8 mg/dL (8.5-10.5); Carbon Dioxide 26 mmol/L (22-29); Chloride 104 mmol/L (98-107); Free T4 Free Thyroxine 0.97 ng/dL (0.82-1.77); Globulin 2.5 g/dL (1.3-4.6); Glomerular Filtration Rate 100.4 mL/min (90-130); Glucose 82 mg/dL (65-115); Osmolality Calculated 287 mOsm/kg (285-295); Sodium 139 mmol/L (136-145); Thyroid Stimulating Hormone 0.66 uIU/mL (0.27-4.20); Total Bilirubin 0.2 mg/dL (0.15-1.2); Total Protein 6.9 g/dL (6.6-8.7)
== END 2024-01-16 14:14 | disposition home or self-care (01) ==
LOC: LAB 14:15
PROVIDERS: PCP Family Medicine; Visit Provider Family Medicine
DX: L73.2 Hidradenitis suppurativa (principal)
CPT/HCPCS: 36415; 80053; 83655; 84439; 84443; 85025

== ENCOUNTER 2024-01-20 14:51 | Outpatient (CLI) | payer BC, MEDICAID, SELFPAY ==
--- NOTE | 2024-01-20 15:00 | US_ITS ---
WS: [id number] ULTRASOUND SOFT TISSUES LEFT cervical chain HISTORY: LEFT lateral neck mass COMPARISON: None available. TECHNIQUE: 2-D and color Doppler imaging is submitted. Ultrasound is directed along the LEFT cervical chain at the palpable abnormalities. Ovoid hypoechoic mass measures 1.4 x 1.3 x 0.5 cm. There is an additional similar nodule adjacent to the auricle. This nodule measures 0.8 x 0.8 x 0.3 cm. US/US soft tissue head neck [id number] IMPRESSION: Palpable areas along the LEFT cervical chain correspond to benign lymph nodes.
== END 2024-01-20 14:52 | disposition home or self-care (01) ==
LOC: RAD 14:52
PROVIDERS: PCP Family Medicine; Visit Provider Family Medicine
DX: R22.1 Localized swelling, mass and lump, neck (principal)
CPT/HCPCS: 76536

== ENCOUNTER → 2024-05-01 15:34 | Outpatient (BNVA) | payer BC, MEDICAID, SELFPAY | PROVIDERS: PCP Family Medicine; Visit Provider Nurse Practitioner Women's Health | DX: Z01.419 Encounter for gynecological examination (general) (routine) without abnormal findings (principal) | CPT/HCPCS: 88175 ==

== ENCOUNTER 2024-09-03 07:05 | Outpatient (CLI) | payer BC, MEDICAID, SELFPAY ==
--- NOTE | 2024-09-03 07:00 | CT_ITS ---
WS: [id number] CT NECK WITH CONTRAST HISTORY: MASS OR LUMP NECK TECHNIQUE: Contiguous 2 mm axial images are performed through the neck with intravenous contrast. Sagittal and coronal reformats are also submitted. All CT scans at [facility] use at least one of these dose optimization techniques: automated exposure control; mA and/or kV adjustment per patient size (includes targeted exams where dose is matched to clinical indication); or iterative reconstruction. CONTRAST: CONTRAST: Omnipaque 350; 100 mL IV. DLP: 184.72 mGy.cm COMPARISON: Soft tissue ultrasound 01/20/2024 Markers placed along the lateral LEFT face, just anterior to the auricle. There is a small slightly lobulated ovoid lymph node measuring 5 mm. No additional mass identified. Additional marker is placed along the more posterior LEFT neck. There is several lymph nodes at [facility] with the largest measuring 11 mm. There are additional bilateral cervical chain lymph nodes. Level 2A and 2B lymph nodes with the largest measuring up to 16 mm. Largest level 2B lymph node is 11 mm. Nasopharynx, oropharynx, hypopharynx and larynx are unremarkable. No soft tissue masses or abnormal enhancement. Torus tubarius and fossa of Rosenmuller and parapharyngeal fat are normal. Thyroid gland and salivary glands are normally enhancing with no masses. No osseous abnormalities. Visualized portions of the skull base demonstrate no abnormalities. Orbits and globes are within normal limits. No soft tissue masses. Visualized paranasal sinuses and mastoid air cells are normal. Lung apices are clear. Small caliber RIGHT vertebral artery. CT/CT neck w con* [id number] IMPRESSION: 1. Palpable areas along the LEFT neck correspond to lymph nodes. Palpable lymph nodes are not enlarged. There are additional cervical chain lymph nodes which are enlarged. Bilateral cervical chain indeterminate lymph nodes. Cervical rick n lymph nodes are enlarged and increased in number. May be reactive adenopathy. The largest lymph nodes are at level 2 and level 5A. Reactive versus neoplasti c. 2. No neck mass identified.
[2024-09-03] MEDS: iohexol 350 mg/mL 500 mL Btl (per mL) IV (09:14)
== END 2024-09-03 07:06 | disposition home or self-care (01) ==
LOC: RAD 07:07
PROVIDERS: PCP Family Medicine; Visit Provider Nurse Practitioner Family
DX: R59.0 Localized enlarged lymph nodes (principal)
CPT/HCPCS: 70491

== ENCOUNTER 2025-01-01 11:18 | Outpatient (CLI) | payer BC, SELFPAY ==
--- NOTE | 2025-01-01 11:27 | XR_ITS ---
WS: [id number] XR foot RT min 3V* [id number] REASON FOR EXAM: pain to 2nd, 3rd, and 4th metatarsals after twisting injury FINDINGS: No acute fracture. Joint spaces of the forefoot, midfoot, and the subtalar joint are intact and well preserved. XR/XR foot RT min 3V* [id number] IMPRESSION: No significant bone or joint abnormality.
[2025-01-01 12:16] LABS: Hematocrit 38.6 % (36-47); Hemoglobin 12.60 g/dL (11.27-16.99); Mean Corpuscular HGB Conc 32.6 g/dL (30-55); Mean Corpuscular Hemoglobin 28.1 pg (27-33); Mean Corpuscular Volume 86.2 fl (85-98); Nucleated Red Blood Cells % 0 %; Platelet Count 251 10^3/cmm (157-399); Red Blood Count 4.48 10^6/uL (3.85-5.65); White Blood Count 11.87 10^3/uL (3.29-11.43)
== END 2025-01-01 11:19 | disposition home or self-care (01) ==
PROVIDERS: PCP Family Medicine; Visit Provider Nurse Practitioner Family
DX: L73.2 Hidradenitis suppurativa (principal); M79.671 Pain in right foot; Z79.899 Other long term (current) drug therapy
CPT/HCPCS: 36415; 73630; 85025; 86480